=== PATIENT | female | born 1935 | race Caucasian/White ===

== ENCOUNTER 2017-12-20 12:51 | Emergency (ER) | payer OTHER ==
[2017-12-20 14:08] LABS: Urine Blood NEGATIVE (NEG); Urine Glucose NEGATIVE (NEG); Urine Protein NEGATIVE (NEG)
--- NOTE | 2017-12-20 15:41 | RAD REPORT ---
EXAM DESCRIPTION: RAD - Chest Pa And Lat (2 Views) - 12/20/2017 3:03 pm CLINICAL HISTORY: Dyspnea, COPD history COMPARISON: November 29 portable chest, November 24 CT chest TECHNIQUE: PA and lateral views of the chest were obtained. FINDINGS: The lungs are fibrotic as a baseline. Lung markings are more prominent in the medial poste rior right lung base. The prior CT chest study showed pneumonia change. Current findings likely repre sent residual infiltrate. No acute failure findings. Upper lobe vasculature within normal limits. C ardiac silhouette is enlarged but stable. No pleural effusion or pneumothorax seen. Osteopenic and d egenerative changes are present. 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 Aortic tortuosity is present without aneurysm. Hiatal hernia is noted. IMPRESSION: Baseline fibrotic change with remnant pneumonia in the medial right base.
[2017-12-20 15:58] LABS: Absolute Lymphocytes (CBC) 0.7 K/uL (0.7-4.9); Absolute Monocytes 0.8 K/uL (0.1-1.3); Absolute Neutrophil 4.9 K/uL (1.8-8.0); Basophils % 0.8 % (0-1.3); Eosinophils % 7.7 % (0-4.4); Hematocrit 31.3 % (36.0-45.0); Lymphocytes % 10.3 % (15.3-44.8); MCH 30.8 pg (27.0-35.0); MCV 93.8 fL (80-100); MPV 8.3 fL (7.6-11.3); Monocytes % 11.5 % (3.3-12.3); RBC Red Blood Cell Count 3.34 M/uL (3.86-4.86)
[2017-12-20] MEDS ORDERED: METHYLPREDNISOLONE 125 MG INJ ONE (16:05)
[2017-12-20] MEDS ORDERED: IPRATROPIUM BROM 0.5MG/2.5ML ONE (16:05)
[2017-12-20] MEDS ORDERED: ALBUTEROL 2.5 MG/3 ML NEB SOL ONE (16:05)
[2017-12-20 16:09] LABS: Protime INR 1.89
[2017-12-20 16:10] LABS: Potassium 4.2 mEq/L (3.6-5.0)
[2017-12-20 16:16] LABS: Albumin 3.4 g/dL (3.2-5.5); Bilirubin Direct 0.2 mg/dL (0-0.2); Bilirubin Total 0.8 mg/dL (0.3-1.2); Magnesium 1.5 mg/dL (1.8-2.5); Protein, Total 6.8 g/dL (6.0-8.3)
--- NOTE | 2017-12-20 16:47 | EKG ---
Test Date: 2017-12-20 Test Time: 15:20:36 [place] Attorney: DIANE MEASUREMENT RESULTS: Intervals: Rate: 74 [place]: QRSD: 88 QT: 380 QTc: 421 [place]: P: OK: QRS: -6 T: 52 INTERPRETIVE STATEMENTS: Atrial fibrillation Abnormal ECG Compared to ECG 11/23/2017 08:24:02 no significant change from previous ECG Electronically Signed On 12-20-17 16:46:57 CDT by Cristi Sanchez
[2017-12-20] MEDS ORDERED: AZITHROMYCIN 250 MG TAB ONE (16:58)
[2017-12-20] MEDS ORDERED: CEFTRIAXONE/SWI 1gm 1 GM/10 ML SYR ONE (16:59)
[2017-12-20 17:23] LABS: Arterial Blood Carboxyhemoglob 1.6 % (0-1.5); Blood Gas Oxyhemoglobin 86.4 % (94-97); Blood O2 Saturation 88.3 % (92-98.5)
--- NOTE | 2017-12-20 18:02 | ER ---
Nurse's Notes [facility] Name: Emi Miller Age: 82 yrs Sex: Female : 1935 Arrival Date: 12/20/2017 Time: 13:08 Bed 6 Private MD: Diagnosis: Pneumonia, unspecified organism;Chronic obstructive pulmonary disease with (acute) exacerbation;Weakness Presentation: 12/20 13:09 Presenting complaint: Patient states: i was admitted for COPD for a week here and was hj D/C'd at [facility] for 2 weeks, since then after desir was took out maulik been peeing frequently, now i am going back to [place], i just want ot be checked before i go home; denies fever and chills;. Transition of care: patient was not received from another setting of care. Onset of symptoms was December 20, 2017. Care prior to arrival: None. 13:09 Method Of Arrival: Ambulatory hj 13:09 Acuity: DERICK 3 hj Triage Assessment: 13:16 General: Appears in no apparent distress. uncomfortable, Behavior is calm, cooperative, hj appropriate for age. Pain: Denies pain. Historical: - Allergies: 13:15 No Known Allergies; hj - Home Meds: 13:15 acetaminophen-codeine 300-30 mg Oral tab 1 tab twice a day [Active]; allopurinol 100 mg hj Oral tab 1 tab once daily [Active]; furosemide 40 mg Oral tab 1 tab once daily [Active]; gabapentin 300 mg Oral cap 1 cap twice a day [Active]; Jantoven Oral [Active]; Metformin Oral nightly [Active]; metoprolol tartrate 25 mg Oral tab 1 tab 2 times per day [Active]; omeprazole 20 mg Oral cpDR 1 cap 2 times per day [Active]; potassium chloride 10 mEq Oral TbER 1 tab once daily [Active]; ProAir HFA inhalation [Active]; sertraline Oral 1 tab nightly [Active]; spironolactone 25 mg Oral tab 1 tab 2 times per day [Active]; Vitamin D Oral 2000 unit daily [Active]; Wellbutrin 100 mg Oral tab 1 tab daily [Active]; Zocor 80 mg Oral tab nightly [Active]; Eliquis 5 mg oral tab 1 tab 2 times per day [Active]; - PMHx: 13:15 Atrial Fib; CHF; COPD; Diabetes - NIDDM; Hypertension; hj - Immunization history:: Adult Immunizations up to date. - Social history:: Smoking status: Patient/guardian denies using tobacco. Screenin:00 Abuse screen: Denies threats or abuse. Denies injuries from another. Nutritional ch screening: No deficits noted. Tuberculosis screening: No symptoms or risk factors identified. Fall Risk None identified. Assessment: 13:56 General: Appears in no apparent distress. comfortable, Behavior is calm, cooperative, ch appropriate for age. Pain: Denies pain. Neuro: Level of Consciousness is awake, alert, obeys commands, Oriented to person, place, time, situation, Replenisher are. Cardiovascular: Denies chest pain. 14:07 Respiratory: Airway is patent Respiratory effort is even, unlabored, Breath sounds are ch diminished bilaterally. Breath sounds with wheezes bilaterally. pt states this is her normal, she has COPD. states she uses oxygen at night only, her standard o2 is 87-92%. GI: No signs and/or symptoms were reported involving the gastrointestinal system. : Reports urinary frequency. Derm: Skin is pale. 16:56 Reassessment: Patient appears in no apparent distress at this time. Patient and/or ch family updated on plan of care and expected duration. Pain level reassessed. Patient is alert, oriented x 3, equal unlabored respirations, skin warm/dry/pink. Patient states feeling better. Patient states symptoms have improved. 18:00 Reassessment: Patient appears in no apparent distress at this time. Patient and/or ch family updated on plan of care and expected duration. Pain level reassessed. Patient is alert, oriented x 3, equal unlabored respirations, skin warm/dry/pink. Patient states feeling better. Patient states symptoms have improved. 18:45 Reassessment: PT RIDE IS HERE, PT DISCHARGED HOMW. Vital Signs: 13:16 BP 110 / 54; Pulse 74; Resp 20; Temp 98.7(TE); Pulse Ox 93% on R/A; Weight 92.99 kg; hj Height 5 ft. 8 in. (172.72 cm); Pain 0/10; 14:00 BP 137 / 100; Pulse 64; Resp 15; Temp 98.3; Pulse Ox 92% on R/A; Pain 0/10; ch 14:57 BP 132 / 67; Pulse 72; Resp 22; Pulse Ox 89% on R/A; Pain 0/10; ch 16:56 BP 142 / 87; Pulse 78; Resp 24; Temp 98.9; Pulse Ox 92% on R/A; Pain 0/10; ch 18:21 BP 111 / 50; Pulse 83; Resp 19; Pulse Ox 90% on R/A; ag 13:16 Body Mass Index 31.17 (92.99 kg, 172.72 cm) ED Course: 13:08 Patient arrived in ED. hj 13:13 Triage completed. hj 13:16 Arm band placed on right wrist. hj 13:56 Ely Catalan, RN is Primary Nurse. ch 14:00 No apparent distress. Resting quietly. ch 14:00 Patient has correct armband on for positive identification. Bed in low position. Call light in reach. Side rails up X 1. Adult w/ patient. Pulse ox on. NIBP on. Warm blanket given. 14:00 No provider procedures requiring assistance completed. Urine collected: clean catch specimen, clear. 14:24 Heike Duke NP is PHCP. rh1 14:24 Chad García MD is Attending Physician. rh1 15:29 EKG done, by set up technician. reviewed by Heike Duke FIRE AND EXPLOSION INVESTIGATOR. tc 15:59 Basic Metabolic Panel Sent. ag 15:59 BNP Sent. ag 15:59 CBC with Diff Sent. ag 16:00 LFT's Sent. ag 16:00 Magnesium Sent. ag 16:00 PT-INR Sent. ag 16:00 Ptt, Activated Sent. ag 16:00 Troponin (emerg Dept Use Only) Sent. ag 16:00 Initial lab(s) drawn, by ks, sent to lab. Inserted saline lock: 22 gauge in right ag forearm, using aseptic technique. Blood collected. 18:21 Chest Pa And Lat (2 Views) XRAY Sent. ag 19:15 IV discontinued, intact, bleeding controlled, No redness/swelling at site. Pressure dressing applied. Administered Medications: 15:20 Drug: SOLU-Medrol 125 mg Route: IVP; Site: right antecubital; ch 17:34 Follow up: Response: No adverse reaction ch 15:56 Drug: Albuterol - atroVENT (3:1) (2.5 mg - 0.5 mg) 3 ml Route: Nebulizer; ch 17:33 Follow up: Response: No adverse reaction; Marked relief of symptoms 16:58 Drug: AZITHromycin 500 mg Route: PO; 17:34 Follow up: Response: No adverse reaction 16:59 Drug: Rocephin - (cefTRIAXone) 1 grams Route: IVPB; Infused Over: 30 mins; Site: right ch forearm; Outcome: 18:02 Discharge ordered by . rh1 18:35 Discharged to home via wheelchair, with family. 18:35 Condition: improved 18:35 Discharge instructions given to patient, family, Instructed on discharge instructions, follow up and referral plans. no drinking with medication, medication usage, Demonstrated understanding of instructions, follow-up care, medications, Prescriptions given X 3. 18:46 Patient left the ED. Signatures: Ely Catalan RN RN Melissa Michael, business reporter EKG Ttc Philly Lyle Rachel, NP FIRE AND EXPLOSION INVESTIGATOR 1 García Carnes RN RN Corrections: (The following items were deleted from the chart) 13:18 13:16 Pulse 74bpm; Resp 20bpm; Pulse Ox 92% RA; Temp 98.7F Temporal; 92.99 kg; Height 5 hj ft. 8 in.; BMI: 31.1; Pain 0/10; hj 13:19 13:16 Pulse 74bpm; Resp 20bpm; Pulse Ox 93% RA; Temp 98.7F Temporal; 92.99 kg; Height 5 hj ft. 8 in.; BMI: 31.1; Pain 0/10; hj 14:08 14:00 BP 137 / 100; Pulse 64bpm; Resp 15bpm; Pulse Ox 99% RA; Temp 98.3F; Pain 0/10; [facility]
--- NOTE | 2017-12-20 18:03 | EDPHYS ---
Physician Documentation [facility] Name: Emi Miller Age: 82 yrs Sex: Female : 1935 Arrival Date: 12/20/2017 Time: 13:08 Bed 6 Private MD: ED Physician Chad García HPI: 12/20 14:27 This 82 yrs old Female presents to ER via Ambulatory with complaints of rh1 Weakness, Urinary Problem. 14:27 generalized weakness, urinary incontinence. Onset: The symptoms/episode began/occurred rh1 1 month(s) ago. Severity of symptoms: At their worst the symptoms were moderate in the emergency department the symptoms have improved. The patient has not experienced similar symptoms in the past. The patient has been recently been admitted at [facility], was discharged a couple of weeks ago. Pt. was last seen approx. 1 month ago, here for dyspnea, COPD. Was admitted to [facility] for approx. 1 week, discharged to LT where she stayed for 2 weeks, and was discharged home approx. 1 week ago. Over the past week, she continues with generalized weakness and "not feeling myself," as well as LIANG and urinary incontinence. She reports some improvement in fatigue and increased energy for the past several days. She was unable to make it to her follow up appointment earlier this week with the discharging physician from the [facility], and is here today essentially "to get checked out, to see if I can fly back home.". Historical: - Allergies: 13:15 No Known Allergies; hj - Home Meds: 13:15 acetaminophen-codeine 300-30 mg Oral tab 1 tab twice a day [Active]; allopurinol 100 mg hj Oral tab 1 tab once daily [Active]; furosemide 40 mg Oral tab 1 tab once daily [Active]; gabapentin 300 mg Oral cap 1 cap twice a day [Active]; Jantoven Oral [Active]; Metformin Oral nightly [Active]; metoprolol tartrate 25 mg Oral tab 1 tab 2 times per day [Active]; omeprazole 20 mg Oral cpDR 1 cap 2 times per day [Active]; potassium chloride 10 mEq Oral TbER 1 tab once daily [Active]; ProAir HFA inhalation [Active]; sertraline Oral 1 tab nightly [Active]; spironolactone 25 mg Oral tab 1 tab 2 times per day [Active]; Vitamin D Oral 2000 unit daily [Active]; Wellbutrin 100 mg Oral tab 1 tab daily [Active]; Zocor 80 mg Oral tab nightly [Active]; Eliquis 5 mg oral tab 1 tab 2 times per day [Active]; - PMHx: 13:15 Atrial Fib; CHF; COPD; Diabetes - NIDDM; Hypertension; hj - Immunization history:: Adult Immunizations up to date. - Social history:: Smoking status: Patient/guardian denies using tobacco. ROS: 14:27 Constitutional: Negative for fever, chills rh1 14:27 Cardiovascular: Positive for orthopnea, Negative for chest pain, edema, palpitations. 14:27 Respiratory: Positive for cough, with no reported sputum, dyspnea on exertion, shortness of breath, wheezing, Negative for hemoptysis. 14:27 Abdomen/GI: Negative for abdominal pain, nausea, vomiting, and diarrhea, constipation. 14:27 Back: Negative for decreased range of motion, pain at rest, pain with movement, radiated pain. 14:27 : Positive for urinary frequency, bladder incontinence She reports the urinary incontinence began after desir catheter removed., Negative for small amounts, hematuria, burning with urination. 14:27 MS/extremity: Negative for decreased range of motion, pain, swelling. 14:27 Skin: Negative for diaphoresis, rash. 14:27 Neuro: Positive for weakness, generalized, Negative for altered mental status, dizziness, headache, loss of consciousness, numbness, syncope, near syncope, tingling. 14:27 All other systems are negative. Exam: 14:27 Constitutional: This is a well developed, well nourished patient who is awake, alert, rh1 and in no acute distress. Head/Face: Normocephalic, atraumatic. ENT: Nares patent. No nasal discharge, no septal abnormalities noted. Tympanic membranes are normal and external auditory canals are clear. Oropharynx with no redness, swelling, or masses, exudates, or evidence of obstruction, uvula midline. Mucous membranes moist. Neck: Trachea midline, and no cervical lymphadenopathy. Supple, full range of motion without nuchal rigidity. No Meningismus. Chest/axilla: Normal chest wall appearance and motion. Nontender with no deformity. No lesions are appreciated. Cardiovascular: Regular rate and rhythm with a normal S1 and S2. No gallops, murmurs, or rubs. No JVD. No pulse deficits. 14:27 Abdomen/GI: Soft, non-tender, with normal bowel sounds. No distension. No guarding or rebound. No evidence of tenderness throughout. Back: No spinal tenderness. No costovertebral tenderness. Full range of motion. Skin: Warm, dry with normal turgor. Normal color with no rashes, no lesions, and no evidence of cellulitis. MS/ Extremity: Pulses equal, no cyanosis. Neurovascular intact. Full, normal range of motion. 14:27 Cardiovascular: Edema: is not appreciated. 14:27 Respiratory: the patient does not display signs of respiratory distress, Respirations: normal, symetrical, no use of accessory muscles, no appreciated paradoxical movements, no tachypnea, prolonged exhalation, that is mild, pursed lip breathing, that is mild, Breath sounds: decreased breath sounds, that are moderate, are located in both bases, wheezing: expiratory that is mild, is scattered. 14:27 Neuro: Orientation: is normal, to person, place \\T\\ time. Mentation: is normal, lucid, able to follow commands, Motor: is normal, moves all fours, Sensation: is normal, no obvious gross deficits. Vital Signs: 13:16 BP 110 / 54; Pulse 74; Resp 20; Temp 98.7(TE); Pulse Ox 93% on R/A; Weight 92.99 kg; hj Height 5 ft. 8 in. (172.72 cm); Pain 0/10; 14:00 BP 137 / 100; Pulse 64; Resp 15; Temp 98.3; Pulse Ox 92% on R/A; Pain 0/10; ch 14:57 BP 132 / 67; Pulse 72; Resp 22; Pulse Ox 89% on R/A; Pain 0/10; ch 16:56 BP 142 / 87; Pulse 78; Resp 24; Temp 98.9; Pulse Ox 92% on R/A; Pain 0/10; ch 18:21 BP 111 / 50; Pulse 83; Resp 19; Pulse Ox 90% on R/A; ag 13:16 Body Mass Index 31.17 (92.99 kg, 172.72 cm) MDM: 14:27 Patient medically screened. rh1 18:02 ED course: Hospital ER and admission records reviewed. Discussed with pt. finding of rh1 right lower lobe pneumonia on CXR today not worse than when seen in hospital, dyspnea improved with nebs here. Given continued dyspnea and unresolved pneumonia, will treat with abx here. She currently uses home O2 while sleeping at night. There were discussions during her hospital admission of potential for need of home O2 23/04. We discussed if she continues with LIANG and persistent low O2 sats, she may require continuous O2. She is resistant to that idea, "because I don't think I need it." She is addiment today about not wanting to stay in the hospital, and given her O2 availability at home, her compliance with medications, familiarity with use of nebulizers, awareness of chronic symptoms, and her overall improvement over the past week, coupled with her workup findings today, I will discharge her with recommendation for immediate return if symptoms worsen. She and her granddaughter are in agreement with this plan. Discussed that once she feels well enough, and is able to coordinate with family, to follow up with primary physician in [place] regarding pneumonia, continued O2 therapy, and urinary incontinence. Also given list of family practice physicians in this area if her stay is prolonged so that she can make contact for follow up.. 18:02 Data reviewed: vital signs, nurses notes, old medical records, lab test result(s), EKG, rh1 radiologic studies, plain films, and as a result, I will discharge patient. Data interpreted: Pulse oximetry: on room air is 90 %. Interpretation: acceptable. Counseling: I had a detailed discussion with the patient and/or guardian regarding: the historical points, exam findings, and any diagnostic results supporting the discharge/admit diagnosis, lab results, radiology results, the need for outpatient follow up, a family practitioner, a therapy site coordinator, a urologist, to return to the emergency department if symptoms worsen or persist or if there are any questions or concerns that arise at home. 12/20 13:56 Order name: Urine Dipstick--Ancillary (enter results) ms 12/20 14:09 Order name: Urine Dipstick-Ancillary; Complete Time: 14:17 EDMS 12/20 14:46 Order name: Basic Metabolic Panel rh1 12/20 14:46 Order name: BNP rh1 12/20 14:46 Order name: CBC with Diff 1 12/20 14:46 Order name: LFT's 12/20 14:46 Order name: Magnesium [facility] 12/20 14:46 Order name: PT-INR 12/20 14:46 Order name: Ptt, Activated 12/20 14:46 Order name: Troponin (emerg Dept Use Only) 12/20 14:51 Order name: ABG [facility] 12/20 16:00 Order name: CBC with Automated Diff; Complete Time: 16:00 EDMS 12/20 16:10 Order name: Basic Metabolic Panel; Complete Time: 16:27 EDMS 12/20 16:10 Order name: Protime (+INR); Complete Time: 16:27 EDMS 12/20 14:46 Order name: EKG; Complete Time: 14:47 12/20 14:46 Order name: Cardiac monitoring; Complete Time: 17:34 [facility] 12/20 14:46 Order name: EKG - Nurse/Tech; Complete Time: 17:34 [facility] 12/20 14:46 Order name: IV Saline Lock; Complete Time: 15:59 [facility] 12/20 14:47 Order name: Chest Pa And Lat (2 Views) XRAY 12/20 15:42 Order name: RAD; Complete Time: 15:46 EDMS 12/20 16:10 Order name: PTT, Activated Partial Thromb; Complete Time: 16:27 EDMS 12/20 16:17 Order name: Troponin (Emerg Dept Use Only); Complete Time: 16:27 EDMS 12/20 16:20 Order name: Liver (Hepatic) Function; Complete Time: 16:27 EDMS 12/20 16:20 Order name: Magnesium; Complete Time: 16:27 EDMS 12/20 16:21 Order name: BNP B-Type Natriuretic Peptide; Complete Time: 16:27 EDMS 12/20 18:14 Order name: ABG Arterial Blood Gas; Complete Time: 18:29 EDMS 12/20 14:46 Order name: Labs collected and sent; Complete Time: 15:59 [facility] 12/20 14:47 Order name: O2 Per Protocol; Complete Time: 15:59 [facility] 12/20 14:47 Order name: O2 Sat Monitoring; Complete Time: 15:59 [facility] 12/20 14:47 Order name: Urine Dipstick-Ancillary (obtain specimen); Complete Time: 18:12 [facility] Administered Medications: 15:20 Drug: SOLU-Medrol 125 mg Route: IVP; Site: right antecubital; ch 17:34 Follow up: Response: No adverse reaction ch 15:56 Drug: Albuterol - atroVENT (3:1) (2.5 mg - 0.5 mg) 3 ml Route: Nebulizer; ch 17:33 Follow up: Response: No adverse reaction; Marked relief of symptoms ch 16:58 Drug: AZITHromycin 500 mg Route: PO; ch 17:34 Follow up: Response: No adverse reaction ch 16:59 Drug: Rocephin - (cefTRIAXone) 1 grams Route: IVPB; Infused Over: 30 mins; Site: right ch forearm; Disposition: 12/21 14:52 Co-signature as Attending Physician, Chad García MD I agree with the assessment and stephanie plan of care. Disposition: 12/20/17 18:02 Discharged to Home. Impression: Pneumonia, unspecified organism, Chronic obstructive pulmonary disease with (acute) exacerbation, Weakness. - Condition is Stable. - Discharge Instructions: Chronic Obstructive Pulmonary Disease, Weakness, Fatigue, Pneumonia, Adult, [id number]. - Prescriptions for cefdinir 300 mg Oral capsule - take 1 capsule by ORAL route every 12 hours for 10 days; [address]. [address] Z- Lane 250 mg Oral Tablet - take 1 tablet by ORAL route as directed for 5 days Day 1 - take two (2) tablets one time. Day 2, 3, 4 , 5 take one (1) tablet once daily.; 6 tablet. Albuterol Sulfate 2.5 mg /3 mL (0.083 %) Inhalation Solution for Nebulization - inhale 1 unit by NEBULIZATION route every 8 hours As needed; 1 box. - SBAR form, Medication Reconciliation Form, Thank You Letter, Antibiotic Education, Prescription Opioid Use form. - Follow up: Private Physician; When: 1 - 2 days; Reason: Recheck today's complaints, Continuance of care, Re-evaluation by your physician. Follow up: Emergency Department; When: As needed; Reason: Fever > 102 F, If symptoms return, Trouble breathing, Worsening of condition. - Problem is an ongoing problem. - Symptoms have improved. Signatures: Dispatcher [employer] EDEly Álvarez RN RN ch Anderson, Corey, MD MD cha Jones, Rachel, FLOUR WORKER FLOUR WORKER rh1 García Carnes RN RN hj Corrections: (The following items were deleted from the chart) 11:12/20 18:02 ED course: Hospital ER and admission records reviewed. Discussed with pt. rh1 finding of right lower lobe pneumonia on CXR today not worse than when seen in hospital. Given continued dyspnea and unresolved pneumonia, will treat with abx here. She currently uses home O2 while sleeping at night. There were discussions during her hospital admission of potential for need of home O2 24/7. We discussed if she continues with LIANG and persistent low O2 sats, she may require continuous O2. She is resistant to that idea, "because I don't think I need it." . 1 12/21 11:12/20 14:27 Pt. was last seen approx. 1 month ago, here for dyspnea, COPD. Was admitted rh to [facility] for approx. 1 week, discharged to [facility] where she stayed for 2 weeks, and was discharged home approx. 1 week ago. Over the past week, she continues with generalized weakness and "not feeling myself," as well as LIANG and urinary incontinence.. 1 12/21 11:12/20 14:27 : Positive for urinary frequency, bladder incontinence Negative for small rh1 amounts, hematuria, burning with urination, 1 12/21 11:12/20 18:02 ED course: Hospital ER and admission records reviewed. Discussed with pt. rh1 finding of right lower lobe pneumonia on CXR today not worse than when seen in hospital, dyspnea improved with nebs here. Given continued dyspnea and unresolved pneumonia, will treat with abx here. She currently uses home O2 while sleeping at night. There were discussions during her hospital admission of potential for need of home O2 24/7. We discussed if she continues with LIANG and persistent low O2 sats, she may require continuous O2. She is resistant to that idea, "because I don't think I need it." She is addiment today about not wanting to stay in the hospital, and given her O2 availability at home, her compliance with medications, familiarity with use of nebulizers, awareness of chronic symptoms, and her overall improvement over the past week, coupled with her workup findings today, I will discharge her with recommendation for immediate return if symptoms worsen. She and her granddaughter are in agreement with this plan.. rh1
== END 2017-12-20 18:46 | disposition home or self-care (01) ==
LOC: ER 12:51
DX: J18.9 Pneumonia, unspecified organism; E11.9 Type 2 diabetes mellitus without complications; J44.1 Chronic obstructive pulmonary disease with (acute) exacerbation; I10 Essential (primary) hypertension
CPT/HCPCS: 36415; 71046; 80048; 80076; 81003; 82805; 82962; 83735; 83880; 84484; 85025; 85610; 85730; 93005; 94640; 99285; J0696; J2930

== ENCOUNTER 2019-11-14 11:33 | Observation (INO) | payer OTHER ==
[2019-11-14] MEDS ORDERED: FUROSEMIDE 20 MG/ 2ML VIAL ONE ×2 (12:15→13:23)
[2019-11-14 12:32] LABS: Absolute Lymphocytes (CBC) 0.8 K/uL (0.7-4.9); Basophils % 0.3 % (0-1.3); Hematocrit 28.1 % (36.0-45.0); Lymphocytes % 12.6 % (15.3-44.8); MPV 9.7 fL (7.6-11.3); RBC Red Blood Cell Count 3.01 M/uL (3.86-4.86)
[2019-11-14 12:46] LABS: ALT/SGPT 24 U/L (12-78); AST/SGOT 28 U/L (15-37); Albumin 3.5 g/dL (3.4-5.0); Alkaline Phosphatase 120 U/L (45-117); BUN Blood Urea Nitrogen 32 mg/dL (7-18); Bicarbonate 33 mmol/L (21-32); Bilirubin Direct 0.1 mg/dL (0-0.2); Bilirubin Total 0.4 mg/dL (0.2-1.0); Glucose Level 93 mg/dL (74-106); Lipase 159 U/L (73-393); Magnesium 2.2 mg/dL (1.8-2.4); NT PRO-BNP 283 pg/mL (<450); Potassium 4.1 mmol/L (3.5-5.1); Sodium Level 143 mmol/L (136-145); Troponin (Emerg Dept Use Only) < 0.02 ng/mL (0.0-0.045)
--- NOTE | 2019-11-14 12:51 | RAD REPORT ---
EXAM DESCRIPTION: Chelsey Single View11/14/2019 12:41 pm CLINICAL HISTORY: Chest pain COMPARISON: 2018 FINDINGS: The lungs appear clear of acute infiltrate. The heart is moderately enlarged . Upper lobe vessels are prominent indicative of pulmonary venous hypertension
[2019-11-14 12:52] LABS: Protime INR 1.35
[2019-11-14] MEDS ORDERED: PANTOPRAZOLE 40 MG INJ ONE (13:23)
[2019-11-14 13:26] LABS: Urine Blood NEGATIVE (NEG); Urine Glucose NEGATIVE (NEG); Urine Protein 1+ (NEG)
--- NOTE | 2019-11-14 13:32 | EKG ---
Test Date: 2019-11-14 Test Time: 12:49:58 Cash Management Specialist: JAZMYNE MEASUREMENT RESULTS: Intervals: Rate: 64 MT: QRSD: 104 QT: 434 QTc: 447 [place]: P: MT: QRS: -26 T: 57 INTERPRETIVE STATEMENTS: Atrial fibrillation Abnormal ECG Compared to ECG 12/20/2017 15:20:36 No significant changes Electronically Signed On 11-14-19 13:32:16 [place] by Cristi Sanchez
--- NOTE | 2019-11-14 15:30 | ECHO ---
HEIGHT: 5 ft 7 in WEIGHT: 206 lb oz DATE OF STUDY: 11/14/[address]: Chad García MD 2-DIMENSIONAL: YES M.MODE: YES DOPPLER: YES COLOR FLOW: YES TDS: NO PORTABLE: NO DEFINITY: NO BUBBLE STUDY: NO DIAGNOSIS: CHEST PAIN/ CONGESTIVE HEART FAILURE CARDIAC HISTORY: CATHERIZATION: YES SURGERY: NO PROSTHETIC VALVE: NO PACEMAKER: NO MEASUREMENTS (cm) DIASTOLIC (NORMALS) SYSTOLIC (NORMALS) IVSd 1.1 (0.6-1.2) LA Diam 5.3 (1.9-4.0) LVEF 73% LVIDd 4.7 (3.5-5.7) LVIDs 2.7 (2.0-3.5) %FS 42% LVPWd 1.1 (0.6-1.2) Ao Diam 3.2 (2.0-3.7) 2 DIMENSIONAL ASSESSMENT: RIGHT ATRIUM: DILATED LEFT ATRIUM: NORMAL RIGHT VENTRICLE: NORMAL LEFT VENTRICLE: NORMAL TRICUSPID VALVE: NORMAL MITRAL VALVE: MITRAL ANNULAR CALCIFICATION PULMONIC VALVE: NORMAL AORTIC VALVE: SCLEROSIS PERICARDIAL EFFUSION: NONE AORTIC ROOT: NORMAL LEFT VENTRICULAR WALL MOTION: NORMAL. 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 MILD TRICUSPID REGURGITATION. MODERATE PULMONARY HYPERTENSION, ESTIMATED RIGHT VENTRICULAR SYSTOLIC PRESSURE 55mmHg. COMMENTS: NORMAL LEFT VENTRICULAR EJECTION FRACTION. MITRAL ANNULAR CALCIFICATION, AORTIC SCLEROSIS WITH NO AORTIC STENOSIS OR AORTIC REGURGITATION. DILATED RIGHT ATRIUM. 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 MILD TRICUSPID REGURGITATION. MODERATE PULMONARY HYPERTENSION. TECHNOLOGIST: JEANNETTE ELLSWORTH
--- NOTE | 2019-11-14 15:52 | ER ---
Nurse's Notes [facility] Name: Emi Miller Age: 84 yrs Sex: Female : 1935 Arrival Date: 11/14/2019 Time: 11:36 Bed 8 Private MD: Diagnosis: Chest pain, unspecified;Dyspnea;Anemia, unspecified;Obesity, unspecified;Atrial fibrillation and flutter;Type 2 diabetes mellitus;Primary pulmonary hypertension Presentation: 11/14 11:44 Presenting complaint: Patient states: Cough and chest congestion that started several sg days ago, reports needing o2 via NC while laying in bed, and also needing the o2 while out running errands, denies N/V/D/F. Transition of care: patient was not received from another setting of care. Resp Distress? No respiratory distress is noted at this time. Onset of symptoms was November 14, 2019. Risk Assessment: Do you want to hurt yourself or someone else? Patient reports no desire to harm self or others. Initial Sepsis Screen: Does the patient meet any 2 criteria? RR > 20 per min. Does the patient have a suspected source of infection? No. Patient's initial sepsis screen is negative. Care prior to arrival: None. 11:44 Method Of Arrival: Wheelchair sg 11:44 Acuity: DERICK 3 sg Historical: - Allergies: 11:46 No Known Allergies; sg - PMHx: 11:46 Atrial Fib; CHF; COPD; Diabetes - NIDDM; Hypertension; sg - Immunization history:: Adult Immunizations up to date. - Coronavirus screen:: The patient has NOT traveled to [place] in the past 14 days. The patient has NOT had contact with known/suspected case of Coronavirus?. - Social history:: Smoking status: Patient denies any tobacco usage or history of. - Family history:: not pertinent. - Ebola Screening: : Patient negative for fever greater than or equal to 101.5 degrees Fahrenheit, and additional compatible Ebola Virus Disease symptoms Patient denies exposure to infectious person Patient denies travel to an Ebola-affected area in the 21 days before illness onset No symptoms or risks identified at this time. Screenin:05 Abuse screen: Denies threats or abuse. Nutritional screening: No deficits noted. em Tuberculosis screening: No symptoms or risk factors identified. Fall Risk None identified. Assessment: 12:00 General: Appears in no apparent distress. comfortable, Behavior is calm, cooperative, em appropriate for age, Denies fever. Pain: Complains of pain in xyphoid area Pain currently is 6 out of 10 on a pain scale. Pain began 2-3 days ago. Neuro: Level of Consciousness is awake, alert, obeys commands, Oriented to person, place, time, situation, Appropriate for age. Cardiovascular: Capillary refill < 3 seconds Patient's skin is warm and dry. Rhythm is sinus rhythm. Respiratory: Reports shortness of breath Airway is patent Respiratory effort is even, Respiratory pattern is regular, tachypnea Breath sounds are diminished bilaterally. Denies cough. GI: Patient currently denies nausea, vomiting. Derm: Skin is intact, is thin, Skin is pink, warm \T\ dry. Musculoskeletal: Capillary refill < 3 seconds, Range of motion: intact in all extremities. 13:20 Reassessment: assisted to bedside commode, tolerated well, family at bedside. em 13:30 Reassessment: Patient appears in no apparent distress at this time. Patient and/or em family updated on plan of care and expected duration. Pain level reassessed. Patient is alert, oriented x 3, equal unlabored respirations, skin warm/dry/pink. 15:44 Reassessment: Patient appears in no apparent distress at this time. Patient and/or em family updated on plan of care and expected duration. Pain level reassessed. Patient is alert, oriented x 3, equal unlabored respirations, skin warm/dry/pink. Patient states feeling better. Patient states symptoms have improved. 15:55 Reassessment: lunch tray ordered. em 17:15 Reassessment: Patient appears in no apparent distress at this time. Patient and/or em family updated on plan of care and expected duration. Pain level reassessed. Patient is alert, oriented x 3, equal unlabored respirations, skin warm/dry/pink. Patient states feeling better. Patient states symptoms have improved. 18:20 Reassessment: Patient appears in no apparent distress at this time. Patient and/or em family updated on plan of care and expected duration. Pain level reassessed. pt assisted to bedside commode, given new brief, pt reports feeling better. 19:15 Reassessment: Patient appears in no apparent distress at this time. Pain: Complains of rr5 pain in head Pain does not radiate. Pain currently is 7 out of 10 on a pain scale. Quality of pain is described as aching, Pain began gradually, Is intermittent. Neuro: Level of Consciousness is awake, alert, obeys commands, Oriented to person, place, time, situation, Appropriate for age Reports headache. Cardiovascular: Capillary refill < 3 seconds Patient's skin is warm and dry. Respiratory: Airway is patent Respiratory effort is even, unlabored, Respiratory pattern is regular, tachypnea on oxygen via nasal cannula. GI: No signs and/or symptoms were reported involving the gastrointestinal system. : No signs and/or symptoms were reported regarding the genitourinary system. EENT: No signs and/or symptoms were reported regarding the EENT system. Derm: Skin is intact, is fragile, is thin, Skin is pink, warm \T\ dry. Musculoskeletal: Capillary refill < 3 seconds. 19:20 General: Appears in no apparent distress. comfortable, Behavior is calm, cooperative, rr5 appropriate for age, ED provider aware for the headache with order made and carried out. awaiting for room assignment. 20:00 Reassessment: Patient appears in no apparent distress at this time. Patient is alert, rr5 oriented x 3, equal unlabored respirations, skin warm/dry/pink. hold the transfer to room, D dimer elevated Charge nurse informed the hospitalist. 20:30 Reassessment: hospitalist replied to charge nurse, patient is cleared for transfer in rr5 floor. Vital Signs: 12:00 BP 136 / 69; Pulse 81; Resp 24; Temp 98.1(O); Pulse Ox 95% on 2 lpm NC; Weight 93.44 em kg; Height 5 ft. 7 in. (170.18 cm); Pain 6/10; 13:30 BP 132 / 68; Pulse 60; Resp 22; Pulse Ox 99% on 2 lpm NC; em 14:30 BP 115 / 58; Pulse 56; Resp 20; Pulse Ox 99% on 2 lpm NC; Pain 0/10; em 15:30 BP 132 / 64; Pulse 58; Resp 18; Pulse Ox 100% on 2 lpm NC; em 16:30 BP 116 / 53; Pulse 67; Resp 18; Pulse Ox 100% on 2 lpm NC; Pain 0/10; em 17:30 BP 120 / 52; Pulse 78; Resp 16; Pulse Ox 99% on 2 lpm NC; em 18:36 BP 114 / 58; Pulse 60; Resp 20; Pulse Ox 97% on 2 lpm NC; em 19:40 BP 126 / 53; Pulse 72; Resp 21; Temp 98.1; Pulse Ox 99% on 2 lpm NC; Pain 7/10; rr5 12:00 Body Mass Index 32.26 (93.44 kg, 170.18 cm) em ED Course: 11:36 Patient arrived in ED. rg4 11:39 Chad García MD is Attending Physician. stephanie 11:43 Andi Andersen, JENNIFER is Primary Nurse. em 11:45 Triage completed. sg 11:45 Arm band placed on. sg 11:46 Assisted to bathroom. sg 12:05 Patient has correct armband on for positive identification. Placed in gown. Bed in low em position. Call light in reach. library monitor on. Pulse ox on. NIBP on. 12:22 Initial lab(s) drawn, by me, sent to lab. Inserted saline lock: 20 gauge in right jl7 forearm, using aseptic technique. Blood collected. 13:05 Urine collected: clean catch specimen, clear. sg 13:44 T\T\S collected, blood band applied to patient. dh3 15:41 Repeat lab(s) drawn. by me, sent to lab. dh3 15:45 Troponin I Sent. dh3 15:50 Rasta Cyr DO is Hospitalizing Provider. stephanie 17:00 Marybeth Singh MD is Hospitalizing Provider. stephanie 19:03 D Dimer drawn by oh and sent to lab. dh3 19:48 No provider procedures requiring assistance completed. Patient admitted, IV remains in rr5 place. intact, No redness/swelling at site. Administered Medications: 12:32 Drug: Lasix 20 mg Route: IVP; Site: right wrist; em 15:18 Follow up: Response: No adverse reaction em 13:30 Drug: Lasix 20 mg Route: IVP; Site: right wrist; em 15:18 Follow up: Response: No adverse reaction em 13:32 Drug: ProTONIX 40 mg Route: IVP; Site: right wrist; em 15:34 Follow up: Response: No adverse reaction em 19:55 Drug: Tylenol 500 mg Route: PO; rr5 19:57 Follow up: Response: Other; medication given at transfer to room 412 rr5 Intake: Outcome: 15:51 Decision to Hospitalize by Provider. stephanie 19:48 Admitted to Tele accompanied by tech, room 412, with oxygen, with chart, Report called rr5 to alan 19:48 Condition: stable 19:48 Instructed on the need for admit. 20:31 Patient left the ED. rr5 Signatures: Efe Ward, RN Chad Ortiz MD MD cha Munoz, Edgar RN RN Karime Millan 4 Jose Lema RN RN 7 Sariah Jaffe 3 Memo Otero, JENNIFER RN rr5 Corrections: (The following items were deleted from the chart) 18:38 16:30 BP 116 / 53; Pulse 67bpm; Resp 18bpm; Pulse Ox 100% RA; Pain 0/10; em em 20:04 19:40 BP 126 / 53; Pulse 72bpm; Resp 21bpm; Pulse Ox 99% 2 lpm Nasal Cannula; Temp rr5 98.1F; rr5
--- NOTE | 2019-11-14 15:53 | EDPHYS ---
Physician Documentation [facility] Name: Emi Miller Age: 84 yrs Sex: Female : 1935 Arrival Date: 11/14/2019 Time: 11:36 Bed 8 Private MD: ED Physician Chad García HPI: 11/14 12:10 This 84 yrs old Female presents to ER via Wheelchair with complaints of stephanie Congestion. 12:10 The patient has shortness of breath at rest, with light activity. Onset: The stephanie symptoms/episode began/occurred 2 day(s) ago. Duration: The symptoms are continuous, and are steadily getting worse. The patient's shortness of breath is aggravated by coughing, exertion, light activity, supine position. The patient or guardian reports chest pain that is located primarily in the anterior chest wall, bilaterally. Onset: 2 day(s) ago. Associated signs and symptoms: The patient has no apparent associated signs or symptoms. Severity of symptoms: At their worst the symptoms were mild moderate in the emergency department the symptoms are unchanged. Historical: - Allergies: 11:46 No Known Allergies; sg - PMHx: 11:46 Atrial Fib; CHF; COPD; Diabetes - NIDDM; Hypertension; sg - Immunization history:: Adult Immunizations up to date. - Coronavirus screen:: The patient has NOT traveled to [place] in the past 14 days. The patient has NOT had contact with known/suspected case of Coronavirus?. - Social history:: Smoking status: Patient denies any tobacco usage or history of. - Family history:: not pertinent. - Ebola Screening: : Patient negative for fever greater than or equal to 101.5 degrees Fahrenheit, and additional compatible Ebola Virus Disease symptoms Patient denies exposure to infectious person Patient denies travel to an Ebola-affected area in the 21 days before illness onset No symptoms or risks identified at this time. ROS: 12:10 Constitutional: Negative for fever, chills, and weight loss, Eyes: Negative for injury, stephanie pain, redness, and discharge, ENT: Negative for injury, pain, and discharge, Neck: Negative for injury, pain, and swelling, Abdomen/GI: Negative for abdominal pain, nausea, vomiting, diarrhea, and constipation, Back: Negative for injury and pain, : Negative for injury, bleeding, discharge, and swelling, MS/Extremity: Negative for injury and deformity, Skin: Negative for injury, rash, and discoloration, Neuro: Negative for headache, weakness, numbness, tingling, and seizure, Psych: Negative for depression, anxiety, suicide ideation, homicidal ideation, and hallucinations, Allergy/Immunology: Negative for hives, rash, and allergies, Endocrine: Negative for neck swelling, polydipsia, polyuria, polyphagia, and marked weight changes, Hematologic/Lymphatic: Negative for swollen nodes, abnormal bleeding, and unusual bruising. 12:10 Cardiovascular: Positive for chest pain, orthopnea. 12:10 Respiratory: Positive for shortness of breath. Exam: 12:10 Constitutional: This is a well developed, well nourished patient who is awake, alert, stephanie and in no acute distress. Head/Face: Normocephalic, atraumatic. Eyes: Pupils equal round and reactive to light, extra-ocular motions intact. Lids and lashes normal. Conjunctiva and sclera are non-icteric and not injected. Cornea within normal limits. Periorbital areas with no swelling, redness, or edema. ENT: Nares patent. No nasal discharge, no septal abnormalities noted. Tympanic membranes are normal and external auditory canals are clear. Oropharynx with no redness, swelling, or masses, exudates, or evidence of obstruction, uvula midline. Mucous membranes moist. Chest/axilla: Normal chest wall appearance and motion. Nontender with no deformity. No lesions are appreciated. Cardiovascular: Regular rate and rhythm with a normal S1 and S2. No gallops, murmurs, or rubs. Normal PMI, no JVD. No pulse deficits. Respiratory: Lungs have equal breath sounds bilaterally, clear to auscultation and percussion. No rales, rhonchi or wheezes noted. No increased work of breathing, no retractions or nasal flaring. Abdomen/GI: Soft, non-tender, with normal bowel sounds. No distension or tympany. No guarding or rebound. No evidence of tenderness throughout. Back: No spinal tenderness. No costovertebral tenderness. Full range of motion. Female : Normal external genitalia. Skin: Warm, dry with normal turgor. Normal color with no rashes, no lesions, and no evidence of cellulitis. MS/ Extremity: Pulses equal, no cyanosis. Neurovascular intact. Full, normal range of motion. Neuro: Awake and alert, GCS 15, oriented to person, place, time, and situation. Cranial nerves II-XII grossly intact. Motor strength 5/5 in all extremities. Sensory grossly intact. Cerebellar exam normal. Normal gait. Psych: Awake, alert, with orientation to person, place and time. Behavior, mood, and affect are within normal limits. 12:10 Neck: External neck: no acute changes, Thyroid: appears normal, ROM/movement: is normal, no acute changes, Lymph nodes: no appreciated lymphadenopathy. 12:10 Cardiovascular: Rate: normal, Rhythm: regular, Pulses: no pulse deficits are appreciated, Heart sounds: normal, normal S1and S2, no S3 or S4, no murmur, no rub, no gallop, Edema: is not appreciated, JVD: is noted bilaterally, to 3 cm. 14:28 Abdomen/GI: Rectal exam: Stool: normal, guaiac negative, hemorrhoid(s), are not stephanie appreciated, mass, is not appreciated, swelling, is not appreciated, tenderness, is not appreciated. Vital Signs: 12:00 BP 136 / 69; Pulse 81; Resp 24; Temp 98.1(O); Pulse Ox 95% on 2 lpm NC; Weight 93.44 em kg; Height 5 ft. 7 in. (170.18 cm); Pain 6/10; 13:30 BP 132 / 68; Pulse 60; Resp 22; Pulse Ox 99% on 2 lpm NC; em 14:30 BP 115 / 58; Pulse 56; Resp 20; Pulse Ox 99% on 2 lpm NC; Pain 0/10; em 15:30 BP 132 / 64; Pulse 58; Resp 18; Pulse Ox 100% on 2 lpm NC; em 16:30 BP 116 / 53; Pulse 67; Resp 18; Pulse Ox 100% on 2 lpm NC; Pain 0/10; em 17:30 BP 120 / 52; Pulse 78; Resp 16; Pulse Ox 99% on 2 lpm NC; em 18:36 BP 114 / 58; Pulse 60; Resp 20; Pulse Ox 97% on 2 lpm NC; em 19:40 BP 126 / 53; Pulse 72; Resp 21; Temp 98.1; Pulse Ox 99% on 2 lpm NC; Pain 7/10; rr5 12:00 Body Mass Index 32.26 (93.44 kg, 170.18 cm) em MDM: 11:39 Patient medically screened. [facility] 12:17 Data reviewed: vital signs, nurses notes, lab test result(s), EKG, radiologic studies, [facility] plain films. 11/14 12:09 Order name: Basic Metabolic Panel [facility] 11/14 12:09 Order name: CBC with Diff [facility] 11/14 12:09 Order name: LFT's [facility] 11/14 12:09 Order name: Magnesium [facility] 11/14 12:09 Order name: NT PRO-BNP [facility] 11/14 12:09 Order name: PT-INR [facility] 11/14 12:09 Order name: Troponin (emerg Dept Use Only) [facility] 11/14 12:09 Order name: Lipase [facility] 11/14 12:09 Order name: Urine Culture [facility] 11/14 12:36 Order name: CBC with Automated Diff; Complete Time: 12:49 EDMS 11/14 12:48 Order name: Basic Metabolic Panel; Complete Time: 12:49 EDMS 11/14 12:48 Order name: Liver (Hepatic) Function; Complete Time: 12:49 EDMS 11/14 12:48 Order name: Troponin (Emerg Dept Use Only); Complete Time: 12:49 EDMS 11/14 12:48 Order name: NT PRO-BNP; Complete Time: 12:49 EDMS 11/14 12:09 Order name: XRAY Chest (1 view) [facility] 11/14 12:48 Order name: Magnesium; Complete Time: 12:49 EDMS 11/14 12:48 Order name: Lipase; Complete Time: 12:49 EDMS 11/14 12:50 Order name: Type And Screen [facility] 11/14 12:53 Order name: Protime (+INR); Complete Time: 13:06 EDMS 11/14 12:55 Order name: RAD; Complete Time: 13:06 EDMS 11/14 13:06 Order name: Urine Dipstick--Ancillary (enter results) 11/14 13:29 Order name: Urine Dipstick-Ancillary; Complete Time: 15:21 EDMS 11/14 15:08 Order name: Type and Screen; Complete Time: 15:21 EDMS 11/14 15:21 Order name: Troponin I [facility] 11/14 15:23 Order name: ABO/RH no charge; Complete Time: 16:14 EDMS 11/14 16:08 Order name: Troponin I; Complete Time: 16:14 [facility] 11/14 16:57 Order name: Troponin (emerg Dept Use Only) [facility] 11/14 18:57 Order name: Hemoglobin A1c [facility] 11/14 18:59 Order name: Thyroid Stimulating Hormone [facility] 11/14 19:52 Order name: D-Dimer [facility] 11/14 12:09 Order name: EKG; Complete Time: 12:10 [facility] 11/14 12:09 Order name: Cardiac monitoring; Complete Time: 14:02 [facility] 11/14 12:09 Order name: EKG - Nurse/Tech; Complete Time: 14:02 [facility] 11/14 12:09 Order name: IV Saline Lock; Complete Time: 12:23 [facility] 11/14 12:09 Order name: Labs collected and sent; Complete Time: 12:23 [facility] 11/14 12:09 Order name: O2 Per Protocol; Complete Time: 12:23 [facility] 11/14 12:09 Order name: O2 Sat Monitoring; Complete Time: 12:23 [facility] 11/14 12:09 Order name: Oxygen; Complete Time: 12:23 [facility] 11/14 12:09 Order name: Urine Dipstick-Ancillary (obtain specimen); Complete Time: 13:01 [facility] 11/14 13:16 Order name: Echo w/ Doppler [facility] 11/14 15:55 Order name: Diet Ada 1800 Kamaljit; Complete Time: 15:55 dh3 Administered Medications: 12:32 Drug: Lasix 20 mg Route: IVP; Site: right wrist; em 15:18 Follow up: Response: No adverse reaction em 13:30 Drug: Lasix 20 mg Route: IVP; Site: right wrist; em 15:18 Follow up: Response: No adverse reaction em 13:32 Drug: ProTONIX 40 mg Route: IVP; Site: right wrist; em 15:34 Follow up: Response: No adverse reaction em 19:55 Drug: Tylenol 500 mg Route: PO; rr5 19:57 Follow up: Response: Other; medication given at transfer to room 412 rr5 Disposition: 11/14/19 15:51 Hospitalization ordered by Marybeth Singh for Inpatient Admission. Preliminary diagnosis are Chest pain, unspecified, Dyspnea, Anemia, unspecified, Obesity, unspecified, Atrial fibrillation and flutter, Type 2 diabetes mellitus, Primary pulmonary hypertension. - Bed requested for Telemetry/MedSurg (Inpatient). - Status is Inpatient Admission. rr5 - Condition is Fair. - Problem is new. - Symptoms have improved. Signatures: Dispatcher [employer] EDMS Pinky Marshall RN RN mw Gay, Steven, RN RN sg Anderson, Corey, MD MD cha Munoz, Edgar RN Memo Andrews RN RN rr5 Corrections: (The following items were deleted from the chart) 17:00 15:51 Hospitalization Ordered by Rasta Cyr DO for Inpatient Admission. Preliminary stephanie diagnosis is Chest pain, unspecified; Dyspnea; Anemia, unspecified; Obesity, unspecified; Atrial fibrillation and flutter; Type 2 diabetes mellitus. Bed requested for Telemetry/MedSurg (Inpatient). Status is Inpatient Admission. Condition is Fair. Problem is new. Symptoms have improved. stephanie 17:01 17:00 11/14/2019 15:51 Hospitalization Ordered by Marybeth Singh MD for Inpatient Admission. stephanie Preliminary diagnosis is Chest pain, unspecified; Dyspnea; Anemia, unspecified; Obesity, unspecified; Atrial fibrillation and flutter; Type 2 diabetes mellitus. Bed requested for Telemetry/MedSurg (Inpatient). Status is Inpatient Admission. Condition is Fair. Problem is new. Symptoms have improved. stephanie 19:37 17:01 11/14/2019 15:51 Hospitalization Ordered by Marybeth Singh MD for Inpatient Admission. mw Preliminary diagnosis is Chest pain, unspecified; Dyspnea; Anemia, unspecified; Obesity, unspecified; Atrial fibrillation and flutter; Type 2 diabetes mellitus; Primary pulmonary hypertension. Bed requested for Telemetry/MedSurg (Inpatient). Status is Inpatient Admission. Condition is Fair. Problem is new. Symptoms have improved. stephanie 20:31 19:37 11/14/2019 15:51 Hospitalization Ordered by Marybeth Singh MD for Inpatient Admission. rr5 Preliminary diagnosis is Chest pain, unspecified; Dyspnea; Anemia, unspecified; Obesity, unspecified; Atrial fibrillation and flutter; Type 2 diabetes mellitus; Primary pulmonary hypertension. Bed requested for Telemetry/MedSurg (Inpatient). Status is Inpatient Admission. Condition is Fair. Problem is new. Symptoms have improved. mw
[2019-11-14] MEDS ORDERED: ALBUTEROL 2.5 MG/3 ML NEB SOL NEB PRN (17:44)
[2019-11-14] MEDS ORDERED: ONDANSETRON 4 MG/2 ML VIAL IV PRN (17:44)
[2019-11-14] MEDS ORDERED: ALPRAZOLAM 0.25 MG TABLET PO PRN (17:44)
[2019-11-14] MEDS ORDERED: ACETAMINOPHEN 500 MG TAB PO PRN (17:44)
--- NOTE | 2019-11-14 18:03 | P.HP ---
Certification for Inpatient Patient admitted to: Observation With expected LOS: <2 Midnights Patient will require the following post-hospital care: Home Health Services Practitioner: I am a practitioner with admitting privileges, knowledge of patient current condition, hospital course, and medical plan of care. Services: Services provided to patient in accordance with Admission requirements found in Title 42 Section 412.3 of the Code of Federal Regulations Patient History Date of Service: 11/14/19 Reason for admission: chest pain History of Present Illness: This patient is an 84 year-old female who presented for chest pain. She has a history of atrial fibrillation on Eliquis, coronary artery disease status post stenting, possible CHF, COPD, hypertension, type 2 diabetes, acid reflex, pulmonary hypertension. She is a home oxygen dependent. Patient just flew to [place] from [place] one week ago. She reported that her oxygen saturation dropped to 56% during flight. Patient has been suffering from chest pain for the last 4 days. The chest pain is located in left anterior chest. She describes it as pressure or heaviness. No radiation. Exertion makes it worse. It is consistent. This is associated with SOB. No fever or chills. No nausea or vomiting. No nasal congestion or sore throat. She said that she used to experience chest pain when she had fluid in her chest. She was then brought to the emergency room. In the ED, her vitals are stable. WBC 6.6. Hemoglobin 8.9. Creatinine 1.15. ProBNP 283. Chest x-ray and EKG unremarkable. Troponin negative. Echo in ED demonstrated ejection fraction 73% . She was admitted for further management. Allergies No Known Allergies Allergy (Unverified 11/21/17 18:53) Home medications list reviewed: Yes Home Medications: Metformin ER [Glucophage ER*] 500 mg PO DAILY 11/23/17 Acetazolamide [Diamox*] 250 mg IV DAILY vial 11/29/17 Albuterol Neb [Proventil 0.083% Neb Soln] 2.5 mg NEB [id number] amp 11/29/17 Arformoterol Tartrate [Brovana] 15 mcg NEB BIDRESP vial.neb 11/29/17 Aspirin [Aspirin EC] 81 mg PO DAILY #30 tablet. 11/29/17 Calcium Carbonate [Tums Regular*] 500 mg PO TID tab 11/29/17 Ensure High Protein 237 ml PO BID can 11/29/17 Hydralazine [Apresoline*] 10 mg IV Q4HP PRN vial 11/29/17 Hydrocodone 7.5/APAP 325 [[place] 7.5/325 mg*] 1 tab PO Q6H PRN tab 11/29/17 Insulin -Regular Human [Novolin -R*] See Protocol SQ ACHS ml 11/29/17 Ipratropium Neb [Atrovent*] 0.5 mg NEB [id number] amp 11/29/17 Ketorolac [Toradol*] 15 mg IV Q6H PRN vial 11/29/17 Metoprolol Tartrate [Lopressor 1 MG/Ml Inj*] 5 mg IV Q6H PRN vial 11/29/17 Metoprolol Tartrate [Lopressor*] 25 mg PO BID 6AM 6PM tab 11/29/17 Ondansetron [Zofran*] 4 mg IV Q6HP PRN vial 11/29/17 Pantoprazole [Protonix Tab*] 40 mg PO DAILYAC tab 11/29/17 Promethazine Inj [Phenergan -Inj*] 12.5 mg IV Q6H PRN vial 11/29/17 Sertraline [Zoloft*] 50 mg PO DAILY tab 11/29/17 Trazodone [Desyrel*] 50 mg PO BEDTIME PRN PRN tablet 11/29/17 allopurinoL [Zyloprim*] 100 mg PO DAILY tab 11/29/17 predniSONE [Deltasone*] 10 mg PO BID tab 11/29/17 - Past Medical/Surgical History Has patient received pneumonia vaccine in the past: Yes Diabetic: Yes -: Diabetes mellitus type 2 -: Hypertension -: CHF -: COPD, oxygen-dependent -: Atrial fibrillation -: Chronic anti coagulation-Coumadin -: Hyperlipidemia -: GERD -: Gout -: Former tobacco use -: CAD with previous stent -: abdominal hernia -: Cholecystectomy -: x3 -: 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 She has children here in the [facility], [place] and [place]. She travels periods at a time to each child. She is originally from [place]. - Family History Father -: Heart disease Notes: CHF Mother -: Heart disease - Social History Smoking Status: Former smoker Alcohol use: No CD- Drugs: No Caffeine use: Yes Review of Systems General: Weakness, Malaise Eyes: Unremarkable ENT: Unremarkable Respiratory: Cough, Shortness of Breath, SOB with Excertion Cardiovascular: Chest Pain Gastrointestinal: Unremarkable Genitourinary: Unremarkable Musculoskeletal: Unremarkable Integumentary: Unremarkable Neurological: Unremarkable Lymphatics: Unremarkable Physical Examination - Vital Signs Blood Pressure: 136/69 Pulse: 81 - Physical Exam General: Alert, Oriented x3, Cooperative HEENT: Atraumatic, Normocephalic, PERRLA, Mucous membr. moist/pink Neck: Supple, 2+ carotid pulse no bruit, JVD not distended Respiratory: Clear to auscultation bilaterally, Diminished Cardiovascular: No edema, Normal pulses, Regular rate/rhythm, Normal S1 S2, No murmurs Gastrointestinal: Hypoactive, Soft and benign, Non-distended, No ascites, No tenderness, No masses, No rebound, No guarding Musculoskeletal: No clubbing, No swelling, No contractures, No erythema, No tenderness, No warmth Integumentary: No rashes, No breakdown, No significant lesion, No tenderness/ swelling, No erythema, No warmth, No cyanosis Neurological: Normal speech, Normal strength at 5/5 x4 extr, Normal tone, Sensation intact, Cranial nerves 3-12 intact, Normal reflexes 2+, Normal affect - Studies Laboratory Data (last 24 hrs) 11/14/19 15:41: Troponin I < 0.02 11/14/19 12:30: PT 15.7 H, INR 1.35 11/14/19 12:20: WBC 6.6, Hgb 8.9 L, Hct 28.1 L, Plt Count 205 11/14/19 12:20: Sodium 143, Potassium 4.1, BUN 32 H, Creatinine 1.15, Glucose 93 , Magnesium 2.2, Total Bilirubin 0.4, AST 28, ALT 24, Alkaline Phosphatase 120 H , Lipase 159 Assessment and Plan - Plan 11/14/19: Patient presented for chest pain. She has a history of a fib, CAD, CHF , COPD, hypertension, and diabetes. Workup including troponin, EKG, chest x-ray , echo unremarkable. This is atypical chest pain. Will follow up troponin. Put her on tele monitoring. Started DuoNeb nebulization. Final Inspector Truck Trailer will be consulted. 1. Chest pain. atypical. workup unremarkable. Will follow up with trop. Cardio was consulted. will check D dimer. 2. COPD. No wheezing. started duoneb and O2. CXR unremarkble. 3. Diastolic CHF. No sign of fluid retension. On gentle diuresis. Home BB and spirinolactone was resumed. 4. A fib. HR under control. Resumed BB and Eliquis 5. GERD. Will resume home PPI 6. HTN. BP stable. On BB and spironolactone. 7. DM2. on SSI. A1c in AM 8. Pulmonary hypertension. Resumed home CV meds. Discharge Plan: Home Plan to discharge in: Unknown - Advance Directives Does patient have a Living Will: No Does patient have a Durable POA for Healthcare: No - Code Status/Comfort Care Code Status: Full Code Time Spent Managing Pts Care (In Minutes): 55
[2019-11-14 18:30] VITALS: O2SAT 98
[2019-11-14] MEDS ORDERED: ACETAMINOPHEN 500 MG TAB ONE (19:51)
[2019-11-14] MEDS: INSULIN -REGULAR HUMAN 50 UNIT/0.5 ML ML SQ SCH (21:00)
[2019-11-14] MEDS: IPRATROPIUM BROM 0.5MG/2.5ML NEB SCH (21:05)
[2019-11-14] MEDS: SPIRONOLACTONE 25 MG TABLET PO SCH (21:30)
[2019-11-14] MEDS: APIXABAN 2.5 MG TABLET PO SCH (21:30)
[2019-11-14] MEDS: METOPROLOL TAR 25 MG TAB PO SCH (21:30)
[2019-11-14 21:54] VITALS: BMI 32.2
[2019-11-15] MEDS: IPRATROPIUM BROM 0.5MG/2.5ML NEB SCH ×2 (02:15→08:20)
[2019-11-15 05:40] LABS: Absolute Lymphocytes (CBC) 0.8 K/uL (0.7-4.9); Basophils % 0.8 % (0-1.3); Hematocrit 27.4 % (36.0-45.0); Lymphocytes % 13.1 % (15.3-44.8); MPV 10.9 fL (7.6-11.3); RBC Red Blood Cell Count 2.94 M/uL (3.86-4.86)
[2019-11-15 06:08] LABS: Albumin 3.3 g/dL (3.4-5.0); Bilirubin Total 0.6 mg/dL (0.2-1.0); Magnesium 2.2 mg/dL (1.8-2.4); Potassium 3.9 mmol/L (3.5-5.1); Protein, Total 6.1 g/dL (6.4-8.2)
[2019-11-15] MEDS: METOPROLOL TAR 25 MG TAB PO SCH (06:13)
[2019-11-15] MEDS: INSULIN -REGULAR HUMAN 50 UNIT/0.5 ML ML SQ SCH ×2 (07:30→11:30)
[2019-11-15 08:27] VITALS: BP 115/56; TEMP 97.6
[2019-11-15] MEDS: APIXABAN 2.5 MG TABLET PO SCH (08:31)
[2019-11-15] MEDS: SPIRONOLACTONE 25 MG TABLET PO SCH (08:32)
[2019-11-15] MEDS ORDERED: FUROSEMIDE 20 MG/ 2ML VIAL IV SCH (09:00)
[2019-11-15] MEDS ORDERED: POTASSIUM 25 MEQ EFFERV TAB PO ONE (09:00)
--- NOTE | 2019-11-15 14:02 | CON ---
History Of Present Illness: Ms. Miller is 84. She came to the hospital because of dyspnea. Ms. Miller has severe underlying lung and heart disease. She has severe pulmonary hypertension, although her m ost recent echocardiogram indicated her pulmonary artery pressure is in the moderate range. She is u nder treatment for it from a women's basketball coach in [place]. She also sees a [place] operator Dr. Sethi at [place]. She is visiting here. She has a history of a stent in her heart. Since being i n the hospital cardiac enzymes are normal. An EKG reveals evidence of elevated venous pressure. No pulmonary edema. An echocardiogram reveals estimated PA pressure in the moderate range 50 mmHg or so , 55 is what the report gave out. She does not have left ventricular dysfunction or any segmental wa ll motion abnormality. Medications: Outpatient medications: Heparin, Sanctura, budesonide, codeine, cephalexin, atorvastat in, sertraline, lactulose, allopurinol, multivitamin, vitamin D3, potassium chloride, furosemide, zoya apentin, apixaban 2.5 b.i.d., metoprolol 25 b.i.d., spironolactone 25 b.i.d., omeprazole 20 b.i.d., a nd albuterol. Physical Examination: Vital Signs: 5 feet 7, 206 pounds. Her blood pressure is 115/56, heart rate is 64. General: Obese, alert, oriented, not in distress. Lungs: Do not reveal wheezes or crackles. Heart: Within normal limits, although the rhythm is a little bit irregular. One of her diagnosis is chronic atrial fibrillation. Extremities: No edema, cyanosis, or clubbing. Distal pulses are palpable. Her electrocardiogram shows atrial fib, heart rate 64, otherwise normal. Troponins are normal. Impression: The patient could probably be discharged today. She wants to go home. I do not think w damaris are treating her for any condition that requires hospitalization. All of her problems are chronic and seemingly stable. Thank you very much for your kind referral of Ms. Miller. I will follow her with you. TONY/HOUSTONL Voice ID: [id number] Report ID: [id number]
--- NOTE | 2019-11-15 21:50 | DS ---
Date of Discharge: 11/15/2019 Discharge Diagnoses: 1.Chest pain, rule out myocardial infarction. 2.Elevated D-dimer. 3.Atrial fibrillation. 4.Diastolic congestive heart failure. 5.Chronic obstructive pulmonary disease. 6.Hypertension. 7.Diabetes mellitus. Consult: Cardiology. Procedure: Echocardiogram in the emergency room showed [id number] mitral regurgitation, mild t ricuspid regurgitation, moderate pulmonary hypertension, estimated right ventricular systolic pressur e 55. History Of Present Illness: Please refer to admission note. Hospital Course: Initially, patient presented to the emergency room with a history of chest pain ove r a few days. She was visiting from [place]. Her O2 saturation apparently dropped during her flight. In the ER, she was evaluated. Her labs were fine except for anemia. BNP was 283. Chest x -ray, EKG was normal. Troponin was negative. Echo done in the emergency room showed an ejection fra ction of 73%. She was admitted overnight to be ruled out. Next cardiac enzymes continued to be nega tive. Dr. Sanchze had seen her this morning, advised she can be discharged. Patient will need stress test as outpatient. She was advised to avoid exertion. D-dimer was positive for 600. The patient already on anticoagulation, so I told ordering SCD given the patient had PE will not change the manag ement. Patient has not had any more chest pain and I thought doing CT scan is going to be mostly neg ative as patient has some elevated D-dimer. Currently, patient is comfortable. She wants to go home. She will be discharged in stable condition. She advised to avoid exertion again, fernando nue home medication and see primary care physician as soon as possible for stress test. Discharge Condition: Stable. Discharge Diet: Cardiac/1800 ADA. Discharge Activity: Avoid exertion. Physical Examination: Discharge vital signs: Blood pressure is 115/56, respiratory rate 18, pulse 64, temp is 97.6. General: Patient is alert and oriented x3. Does not look in any distress. HEENT: Atraumatic, normocephalic. PERRLA. Oral mucosa is moist. Neck: Supple. No JVD. No carotid bruit. Chest: Clear to auscultation with good air entry. Heart: Regular rate and rhythm. S1, S2 normal. No gallop or murmur. Abdomen: Soft, nontender. No masses. No hepatosplenomegaly. Positive bowel sounds. Extremities: No edema. No calf tenderness. Neurologic: Grossly intact. Discharge Medications: Albuterol inhaler as before 100 mg once a day, Eliquis 2.5 mg twic e a day, Lipitor 40 mg at bedtime, Pulmicort 0.5 inhaler twice a day, Keflex 250 mg orally once a day , vitamin D as before, Tylenol 3 one tablet b.i.d. as before, Lasix 20 mg daily, Neurontin 200 mg twi ce a day, lactulose 20 mg oral t.i.d., metoprolol 25 mg twice a day, multivitamin once a day, omepraz ole 20 mg twice a day, potassium chloride 20 mEq daily, Zoloft 50 mg twice a day, Aldactone 25 mg twi ce a day, Sanctura 20 mg at bedtime. TJ/ANASTASIYA Voice ID: [id number] Report ID: [id number]
== END 2019-11-15 12:35 | disposition home or self-care (01) ==
LOC: ER 11:33 → ERHOLD 17:44 → 4TH 19:56
PROVIDERS: ADMIT Internal Medicine; ATTEND Internal Medicine
DX: R07.9 Chest pain, unspecified (principal); R79.9 Abnormal finding of blood chemistry, unspecified; I48.91 Unspecified atrial fibrillation; I11.0 Hypertensive heart disease with heart failure; I50.32 Chronic diastolic (congestive) heart failure; J44.9 Chronic obstructive pulmonary disease, unspecified; E11.9 Type 2 diabetes mellitus without complications; Z99.81 Dependence on supplemental oxygen; Z79.01 Long term (current) use of anticoagulants; I25.10 Atherosclerotic heart disease of native coronary artery without angina pectoris; Z95.5 Presence of coronary angioplasty implant and graft
CPT/HCPCS: 93005; 93306; 87088; 85025 ×2; 80048; 36415 ×2; 86900; 83735 ×2; 86850; 84100; 85610; 86901; 82947 ×3; 85379; 80076; 84443; 81003; 83036; 84484 ×3; 83690; 80053; 83880; 71045; 94640; 94760 ×3; 96375; 96374; 99285; J1940 ×3; C9113; G0378 ×3; 87086

== ENCOUNTER 2021-04-02 17:59 | Inpatient (IN) | payer OTHER ==
[2021-04-02 19:12] LABS: Absolute Lymphocytes (CBC) 0.7 K/uL (0.7-4.9); Basophils % 0.4 % (0-1.3); Hematocrit 34.1 % (36.0-45.0); Lymphocytes % 10.1 % (15.3-44.8); MPV 10.1 fL (7.6-11.3); RBC Red Blood Cell Count 3.56 M/uL (3.86-4.86)
[2021-04-02 19:13] LABS: Protime INR 1.31
[2021-04-02 19:27] LABS: ALT/SGPT 21 U/L (12-78); AST/SGOT 21 U/L (15-37); Alkaline Phosphatase 102 U/L (45-117); BUN Blood Urea Nitrogen 24 mg/dL (7-18); Bicarbonate 32 mmol/L (21-32); Bilirubin Direct 0.2 mg/dL (0-0.2); Bilirubin Total 0.9 mg/dL (0.2-1.0); Glucose Level 121 mg/dL (74-106); Magnesium 1.8 mg/dL (1.8-2.4); NT PRO-BNP 502 pg/mL (<450); Potassium 4.1 mmol/L (3.5-5.1); Protein, Total 7.3 g/dL (6.4-8.2); Sodium Level 137 mmol/L (136-145); Troponin (Emerg Dept Use Only) < 0.02 ng/mL (0.0-0.045)
[2021-04-02] MEDS ORDERED: LEVALBUTEROL 1.25 MG/3 ML NEB ONE (19:44)
--- NOTE | 2021-04-02 19:52 | RAD REPORT ---
EXAM DESCRIPTION: RAD - Chest Single View - 04/02/2021 7:26 pm CLINICAL HISTORY: CONGESTION Chest pain. COMPARISON: <Comparisons> FINDINGS: Portable technique limits examination quality. Mild pulmonary edema is noted. The heart is quite prominent in size. No displaced fractures.Chondroid lesion proximal right humerus is stable. Moderate hiatal hernia suspected. IMPRESSION: Mild to moderate CHF.
[2021-04-02] MEDS ORDERED: predniSONE 20 MG TAB ONE (20:23)
[2021-04-02] MEDS ORDERED: FUROSEMIDE 40 MG/4 ML VIAL ONE (20:25)
--- NOTE | 2021-04-02 20:42 | ER ---
Nurse's Notes [facility] Name: Emi Miller Age: 85 yrs Sex: Female : 1935 Arrival Date: 04/02/2021 Time: 18:08 Bed 8 Private MD: Diagnosis: Heart failure, unspecified-acute on chronic congestive heart failure. Volume overload Presentation: 04/02 18:14 Chief complaint: Patient states: Pt stated,'I'm congested x 1 day and I get fluid kg overload easily. Also I saw my church history professor 03/24 and they called and said I need to have imagining done before I get back on a plane because I might have a blood clot.". Coronavirus screen: Client denies travel out of the [place] in the last 14 days. At this time, unable to obtain information related to travel outside the [place] At this time, the client does not indicate any symptoms associated with coronavirus-19. Ebola Screen: Patient negative for fever greater than or equal to 101.5 degrees Fahrenheit, and additional compatible Ebola Virus Disease symptoms Patient denies exposure to infectious person. Patient denies travel to an Ebola-affected area in the 21 days before illness onset. Initial Sepsis Screen: Does the patient meet any 2 criteria? No. Patient's initial sepsis screen is negative. Does the patient have a suspected source of infection? No. Patient's initial sepsis screen is negative. Risk Assessment: Do you want to hurt yourself or someone else? Patient reports no desire to harm self or others. Onset of symptoms was April 01, 2021. 18:14 Method Of Arrival: Wheelchair kg 18:14 Acuity: DERICK 3 kg Triage Assessment: 18:28 General: Appears in no apparent distress. Behavior is calm, cooperative, appropriate kg for age, quiet. Pain: Complains of pain in chest. Historical: - Allergies: 18:19 No Known Allergies; kg - Home Meds: 18:19 acetaminophen-codeine 300-30 mg Oral tab 1 tab twice a day [Active]; allopurinol 100 mg kg Oral tab 1 tab once daily [Active]; Eliquis 5 mg Oral tab 1 tab 2 times per day [Active]; gabapentin 300 mg Oral cap 1 cap twice a day [Active]; furosemide 20 mg oral tab 1 tab once daily [Active]; furosemide 20 mg Oral tab 1 tab once daily [Active]; allopurinol 100 mg Oral tab 1 tab once daily [Active]; metoprolol tartrate 25 mg Oral tab 1 tab 2 times per day [Active]; gabapentin 300 mg oral cap 1 cap BID [Active]; furosemide 20 mg Oral tab 1 tab 2 times per day [Active]; potassium chloride 20 mEq oral TbTQ 1 tab once daily [Active]; lactulose 10 gram/15 mL Oral soln 30 mL 3 times per day [Active]; Lipitor 40 mg Oral tab 1 tab once daily [Active]; budesonide .5mg/2ml oral [Active]; ProAir HFA inhalation [Active]; - PMHx: 18:19 Atrial Fib; CHF; COPD; Diabetes - NIDDM; Hypertension; Cirrhosis of liver; Gout; kg - PSHx: 18:19 section; 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 - Social history:: Smoking status: Patient denies any tobacco usage or history of. Patient uses. Screenin:29 Abuse screen: Denies threats or abuse. Denies injuries from another. Nutritional kg screening: No deficits noted. Tuberculosis screening: No symptoms or risk factors identified. Fall Risk None identified. Fall in past 12 months (25 points). Secondary diagnosis (15 points) No IV (0 pts). Ambulatory Aid- None/Bed Rest/Nurse Assist (0 pts). Gait- Normal/Bed Rest/Wheelchair (0 pts) Mental Status- Oriented to own ability (0 pts). Total Bailey Fall Scale indicates Low Risk Score (25-44 pts). Fall prevention measures have been instituted. Side Rails Up X 2 Placed close to Nursing Station Frequent Obs/Assesments occuring Family Present and informed to notify staff if they need to leave bedside As available Patient and Family Educated on Fall Prevention Program and strategies. Assessment: 19:39 General: Appears in no apparent distress. Behavior is calm, cooperative. Pain: Denies lp1 pain. Neuro: Level of Consciousness is awake, alert, obeys commands, Oriented to person, place, time, situation. Cardiovascular: Capillary refill < 3 seconds in bilateral fingers Patient's skin is warm and dry. Rhythm is irregular. Respiratory: Airway is patent Respiratory effort is even, unlabored, Breath sounds are clear in left posterior upper lobe, right posterior upper lobe and right posterior middle lobe Breath sounds are diminished in left posterior lower lobe and right posterior lower lobe. GI: Abdomen is non-distended. : No signs and/or symptoms were reported regarding the genitourinary system. EENT: No signs and/or symptoms were reported regarding the EENT system. Derm: Skin is pink, warm \\T\\ dry. Musculoskeletal: No deficits noted. 20:45 Reassessment: Patient appears in no apparent distress at this time. Assisted patient to [address], O2 noted to be at 87% on 3L NC during transfer. 21:30 Reassessment: Patient reports headache, Hospitalist notified. lp1 22:13 Reassessment: Patient appears in no apparent distress at this time. Patient and/or lp1 family updated on plan of care and expected duration. Pain level reassessed. Patient resting, eyes closed, respirations even, unlabored. Vital Signs: 18:14 BP 169 / 71; Pulse 95; Resp 20; Temp 98.8(O); Pulse Ox 97% on R/A; Weight 90.72 kg (R); kg Height 5 ft. 7 in. (170.18 cm) (R); Pain 5/10; 19:30 BP 166 / 76; Pulse 63; Resp 14; Pulse Ox 99% on 3 lpm NC; lp1 20:15 BP 167 / 58; Pulse 76; Resp 15; Pulse Ox 100% on 3 lpm NC; lp1 21:30 BP 174 / 61; Pulse 81; Resp 18; Pulse Ox 99% on 3 lpm NC; lp1 22:13 BP 151 / 71; Pulse 75; Resp 16; Pulse Ox 100% on 3 lpm NC; lp1 18:14 Body Mass Index 31.32 (90.72 kg, 170.18 cm) kg ED Course: 18:08 Patient arrived in ED. mr 18:19 Triage completed. kg 18:29 Patient has correct armband on for positive identification. Fall risk band placed. Bed kg in low position. Call light in reach. Side rails up X 1. 18:40 Omari Overton NP is PHCP. pm1 18:40 Connor Skaggs MD is Attending Physician. pm1 19:01 Inserted saline lock: 22 gauge in right antecubital area, using aseptic technique. ll1 Blood collected. 19:14 Kinjal Hansen, RN is Primary Nurse. lp1 19:25 XRAY Chest (1 view) In Process Unspecified. EDMS 19:39 Flu and/or RSV swab sent to lab. Strep swab sent to lab. lp1 19:40 Arm band placed on. lp1 20:41 Hermes Philip PA is Hospitalizing Provider. pm1 20:56 No provider procedures requiring assistance completed. Patient admitted, IV remains in lp1 place. Administered Medications: 19:37 Drug: Xopenex (levalbuterol) 2.5 mg Route: Inhalation; lp1 20:10 Drug: predniSONE 60 mg Route: PO; lp1 20:53 Follow up: Response: No adverse reaction lp1 20:10 Drug: Lasix (furosemide) 40 mg Route: IVP; Site: right antecubital; lp1 20:57 Follow up: Response: No adverse reaction lp1 21:33 Drug: Tylenol 500 mg Route: PO; lp1 22:14 Follow up: Response: No adverse reaction lp1 Output: 20:53 Urine: 350ml (Voided); Total: 350ml. lp1 Outcome: 20:42 Decision to Hospitalize by Provider. pm1 20:56 Condition: stable lp1 20:56 Instructed on the need for admit. 22:13 Admitted to Med/surg via stretcher, room 209, with oxygen, with chart, Report called to lp1 JENNIFER Tiwari 22:36 Patient left the ED. lp1 Signatures: Dispatcher [employer] [facility] Vinita Dodge mr Kinjal Hansen, RN RN lp1 Omari Overton, [employer] pm1 Karen Raya RN RN 1 Lilo Layne RN RN kg
--- NOTE | 2021-04-02 20:42 | EDPHYS ---
Physician Documentation [facility] Name: Emi Miller Age: 85 yrs Sex: Female : 1935 Arrival Date: 04/02/2021 Time: 18:08 Bed 8 Private MD: ED Physician Connor Skaggs HPI: 04/02 18:52 This 85 yrs old Female presents to ER via Wheelchair with complaints of pm1 Congestion. 18:52 The patient has shortness of breath at rest. Onset: The symptoms/episode began/occurred pm1 yesterday. Duration: The symptoms are continuous. The patient's shortness of breath is aggravated by exertion, is alleviated by nothing. Associated signs and symptoms: Pertinent positives: chest pain, non-productive cough, Pertinent negatives: diaphoresis, fever, nausea, vomiting. Severity of symptoms: in the emergency department the symptoms are worse. The patient has experienced similar episodes in the past, multiple times, today's symptoms are similar, to previous CHF exacerbation. The patient has been recently seen by a physician: pulmonology. Historical: - Allergies: 18:19 No Known Allergies; kg - Home Meds: 18:19 acetaminophen-codeine 300-30 mg Oral tab 1 tab twice a day [Active]; allopurinol 100 mg kg Oral tab 1 tab once daily [Active]; Eliquis 5 mg Oral tab 1 tab 2 times per day [Active]; gabapentin 300 mg Oral cap 1 cap twice a day [Active]; furosemide 20 mg oral tab 1 tab once daily [Active]; furosemide 20 mg Oral tab 1 tab once daily [Active]; allopurinol 100 mg Oral tab 1 tab once daily [Active]; metoprolol tartrate 25 mg Oral tab 1 tab 2 times per day [Active]; gabapentin 300 mg oral cap 1 cap BID [Active]; furosemide 20 mg Oral tab 1 tab 2 times per day [Active]; potassium chloride 20 mEq oral TbTQ 1 tab once daily [Active]; lactulose 10 gram/15 mL Oral soln 30 mL 3 times per day [Active]; Lipitor 40 mg Oral tab 1 tab once daily [Active]; budesonide .5mg/2ml oral [Active]; ProAir HFA inhalation [Active]; - PMHx: 18:19 Atrial Fib; CHF; COPD; Diabetes - NIDDM; Hypertension; Cirrhosis of liver; Gout; kg - PSHx: 18:19 section; 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 - Social history:: Smoking status: Patient denies any tobacco usage or history of. Patient uses. ROS: 18:52 Constitutional: Negative for fever, chills, and weight loss, Eyes: Negative for injury, pm1 pain, redness, and discharge, ENT: Negative for injury, pain, and discharge, Neck: Negative for injury, pain, and swelling. 18:52 Abdomen/GI: Negative for abdominal pain, nausea, vomiting, diarrhea, and constipation, Back: Negative for injury and pain, MS/Extremity: Negative for injury and deformity, Skin: Negative for injury, rash, and discoloration, Neuro: Negative for headache, weakness, numbness, tingling, and seizure. 18:52 Cardiovascular: Positive for chest pain, Negative for edema. 18:52 Respiratory: Positive for 18:52 Respiratory: Positive for cough, shortness of breath. 18:52 All other systems are negative. Exam: 18:52 Constitutional: This is a well developed, well nourished patient who is awake, alert, pm1 and in no acute distress. Head/Face: Normocephalic, atraumatic. 18:52 Back: No spinal tenderness. No costovertebral tenderness. Full range of motion. Skin: Warm, dry with normal turgor. Normal color with no rashes, no lesions, and no evidence of cellulitis. MS/ Extremity: Pulses equal, no cyanosis. Neurovascular intact. Full, normal range of motion. 18:52 Eyes: Exam is negative for acute changes, Periorbital structures: appear normal, Extraocular movements: intact throughout, Conjunctiva: normal, no injection, Sclera: no acute changes, icterus, is not appreciated. 18:52 ENT: Mouth: is normal, Lips: normal, Oral mucosa: normal, pink and intact, moist. 18:52 Cardiovascular: Rate: normal, Rhythm: regular, Pulses: no pulse deficits are appreciated. 18:52 Respiratory: the patient does not display signs of respiratory distress, Respirations: normal, Breath sounds: decreased breath sounds, that are mild, are located in both bases. 18:52 Abdomen/GI: Inspection: abdomen appears normal, Palpation: abdomen is soft and non-tender. 18:52 Neuro: Exam negative for acute changes, Orientation: is normal, Mentation: is normal, Motor: is normal, moves all fours. Vital Signs: 18:14 BP 169 / 71; Pulse 95; Resp 20; Temp 98.8(O); Pulse Ox 97% on R/A; Weight 90.72 kg (R); kg Height 5 ft. 7 in. (170.18 cm) (R); Pain 5/10; 19:30 BP 166 / 76; Pulse 63; Resp 14; Pulse Ox 99% on 3 lpm NC; lp1 20:15 BP 167 / 58; Pulse 76; Resp 15; Pulse Ox 100% on 3 lpm NC; lp1 21:30 BP 174 / 61; Pulse 81; Resp 18; Pulse Ox 99% on 3 lpm NC; lp1 22:13 BP 151 / 71; Pulse 75; Resp 16; Pulse Ox 100% on 3 lpm NC; lp1 18:14 Body Mass Index 31.32 (90.72 kg, 170.18 cm) kg MDM: 18:40 Patient medically screened. pm1 20:40 Counseling: I had a detailed discussion with the patient and/or guardian regarding: the pm1 historical points, exam findings, and any diagnostic results supporting the discharge/admit diagnosis, lab results, radiology results, the need for further work-up and treatment in the hospital. 22:01 Data reviewed: vital signs. Data interpreted: Pulse oximetry: on 2L(s) per nasal pm1 canula, is 100 %. Interpretation: normal. 04/02 18:42 Order name: Basic Metabolic Panel; Complete Time: 19:36 pm1 04/02 18:42 Order name: CBC with Diff; Complete Time: 19:36 pm1 04/02 18:42 Order name: LFT's; Complete Time: 19:36 pm1 04/02 18:42 Order name: Magnesium; Complete Time: 19:36 pm1 04/02 18:42 Order name: NT PRO-BNP; Complete Time: 19:36 pm1 04/02 18:42 Order name: PT-INR; Complete Time: 19:36 pm1 04/02 18:42 Order name: Troponin (emerg Dept Use Only); Complete Time: 19:36 pm1 04/02 18:42 Order name: XRAY Chest (1 view); Complete Time: 20:02 pm1 04/02 18:42 Order name: Flu; Complete Time: 20:49 pm1 04/02 20:53 Order name: Urine Dipstick-Ancillary; Complete Time: 21:00 EDMS 04/02 21:33 Order name: SARS-COV-2 RT PCR; Complete Time: 22:01 EDMS 04/02 18:42 Order name: EKG; Complete Time: 18:43 pm1 04/02 18:42 Order name: Cardiac monitoring; Complete Time: 19:38 pm1 04/02 18:42 Order name: EKG - Nurse/Tech; Complete Time: 18:49 pm1 04/02 18:42 Order name: IV Saline Lock; Complete Time: 19:02 pm1 04/02 18:42 Order name: Labs collected and sent; Complete Time: 19:02 pm1 04/02 18:42 Order name: O2 Per Protocol; Complete Time: 19:38 pm1 04/02 18:42 Order name: O2 Sat Monitoring; Complete Time: 19:38 pm1 Administered Medications: 19:37 Drug: Xopenex (levalbuterol) 2.5 mg Route: Inhalation; lp1 20:10 Drug: predniSONE 60 mg Route: PO; lp1 20:53 Follow up: Response: No adverse reaction lp1 20:10 Drug: Lasix (furosemide) 40 mg Route: IVP; Site: right antecubital; lp1 20:57 Follow up: Response: No adverse reaction lp1 21:33 Drug: Tylenol 500 mg Route: PO; lp1 22:14 Follow up: Response: No adverse reaction lp1 Disposition Summary: 04/02/21 20:42 Hospitalization Ordered Hospitalization Status: Observation pm1 Provider: Hermes Philip pm1 Location: Telemetry/MedSurg (observation) pm1 Condition: Stable pm1 Problem: new pm1 Symptoms: have improved pm1 Bed/Room Type: Standard pm1 Room Assignment: 209(04/02/21 21:37) mw Diagnosis - Heart failure, unspecified - acute on chronic congestive heart failure. Volume pm1 overload Forms: - Medication Reconciliation Form pm1 - SBAR form pm1 Addendum: 04/04/2021 13:39 Co-signature as Attending Physician, Connor Skaggs MD I agree with the assessment and k dr plan of care. Signatures: Dispatcher [employer] EDMS Pinky Marshall RN RN Connor Skaggs MD MD [facility] Kinjal Hansen RN RN lp1 Omari Overton, FURNITURE RESTORER FURNITURE RESTORER pm1 Lilo Layne RN RN kg Corrections: (The following items were deleted from the chart) 04/02 20:15 18:42 CORONAVIRUS+MR.LAB.BRZ ordered. EDPR EDMS 21:37 20:42 pm1 ximena
[2021-04-02 20:53] LABS: Urine Blood Trace-intact (Negative); Urine Glucose Negative (Negative); Urine Protein Negative (Negative); Urine Specific Gravity 1.015 (1.005-1.030)
--- NOTE | 2021-04-02 21:32 | P.HP ---
Certification for Inpatient Patient admitted to: Observation With expected LOS: <2 Midnights Patient will require the following post-hospital care: None Practitioner: I am a practitioner with admitting privileges, knowledge of patient current condition, hospital course, and medical plan of care. Services: Services provided to patient in accordance with Admission requirements found in Title 42 Section 412.3 of the Code of Federal Regulations <Hermes Philip - Last Filed: 04/02/21 21:26> Patient History Date of Service: 04/02/21 Reason for admission: CHF exacerbation History of Present Illness: Ms. Miller is an 85 yo F with afib on chronic anticoagulation, CHF, COPD on Home O2, DM, HTN, cirrhosis here today for one day of SOB and tightness in her abdomen. She reports mild improvement of symptoms with Lasix. Reports orthopnea. Denies cough, wheezing, PND. CXR shows mild to moderate CHF. 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 She has children here in the area, [place], [place]. She travels periods at a time to each child. She is originally from [place]. - Family History Father -: Heart disease Notes: CHF Mother -: Heart disease - Social History Smoking Status: Former smoker Alcohol use: No CD- Drugs: No Caffeine use: Yes Place of Residence: Home <Hermes Philip - Last Filed: 04/02/21 21:26> Date of Service: 04/02/21 <Austin Lewis - Last Filed: 04/04/21 01:24> Allergies No Known Allergies Allergy (Verified 04/02/21 23:04) Home Medications: Acetaminophen with Codeine [Tylenol with-Codeine #3 Tablet] 1 tab PO PRN PRN 04/02/21 Allopurinol 100 mg PO DAILY 04/02/21 Apixaban [Eliquis *] 2.5 mg PO BID 04/02/21 Atorvastatin Calcium [Lipitor] 40 mg PO BEDTIME 04/02/21 Furosemide [Lasix*] 40 mg PO BID 04/02/21 Gabapentin 300 mg PO BID 04/02/21 Lactulose 30 ml PO TID 04/02/21 Metoprolol Tartrate 25 mg PO BID 04/02/21 Multivitamin 1 tab PO DAILY 04/02/21 Omeprazole 20 mg PO BID 04/02/21 Potassium Chloride 20 meq PO DAILY 04/02/21 Spironolactone [Aldactone*] 25 mg PO BID 04/02/21 Review of Systems 10-point ROS is otherwise unremarkable Respiratory: Shortness of Breath Cardiovascular: Orthopnea <Hermes Philip - Last Filed: 04/02/21 21:26> Physical Examination - Physical Exam General: Alert, In no apparent distress HEENT: Atraumatic, PERRLA, Mucous membr. moist/pink, EOMI, Sclerae nonicteric Neck: Supple, 2+ carotid pulse no bruit, No LAD, Without JVD or thyroid abnormality Respiratory: Diminished, Crackles/rales Cardiovascular: No edema, Normal pulses, Normal S1 S2, No gallops, No rubs, Other (afib, rate controlled) Capillary refill: <2 Seconds Gastrointestinal: Normal bowel sounds, No tenderness Musculoskeletal: No tenderness Integumentary: No rashes Neurological: Normal speech, Normal strength at 5/5 x4 extr, Normal tone, Normal affect Lymphatics: No axilla or inguinal lymphadenopathy - Studies Laboratory Data (last 24 hrs) 04/02/21 18:55: PT 15.1 H, INR 1.31 04/02/21 18:55: WBC 7.20, Hgb 11.6 L, Hct 34.1 L, Plt Count 141 L 04/02/21 18:55: Sodium 137, Potassium 4.1, BUN 24 H, Creatinine 0.91, Glucose 121 H, Magnesium 1.8, Total Bilirubin 0.9, AST 21, ALT 21, Alkaline Phosphatase 102 Microbiology Data (last 24 hrs): 04/02/21 19:30 Nasopharnyx Influenza Type A Antigen Screen - Final 04/02/21 19:30 Nasopharnyx Influenza Type B Antigen Screen - Final <Hermes Philip - Last Filed: 04/02/21 21:26> - Studies Microbiology Data (last 24 hrs): 04/02/21 19:30 Nasopharnyx Influenza Type A Antigen Screen - Final 04/02/21 19:30 Nasopharnyx Influenza Type B Antigen Screen - Final <LewisAustin Jaimie - Last Filed: 04/04/21 01:24> Assessment and Plan - Problems (Diagnosis) (1) CHF (congestive heart failure) Onset Date: 11/26/17 Current Visit: No Status: Acute Qualifiers: Heart failure type: unspecified Heart failure chronicity: acute on chronic Qualified Code(s): I50.9 - Heart failure, unspecified (2) COPD (chronic obstructive pulmonary disease) Onset Date: 11/26/17 Current Visit: No Status: Chronic Qualifiers: COPD type: unspecified COPD Qualified Code(s): J44.9 - Chronic obstructive pulmonary disease, unspecified (3) Shortness of breath Onset Date: 11/26/17 Current Visit: No Status: Acute (4) Atrial fibrillation Onset Date: 11/26/17 Current Visit: No Status: Chronic Qualifiers: Atrial fibrillation type: unspecified Qualified Code(s): I48.91 - Unspecified atrial fibrillation (5) CAD (coronary artery disease) Onset Date: 11/26/17 Current Visit: No Status: Chronic Qualifiers: Coronary Disease-Associated Artery/Lesion type: [place] artery [place] vs. transplanted heart: [place] heart Associated angina: without angina Qualified Code(s): I25.10 - Atherosclerotic heart disease of [place] coronary artery without angina pectoris (6) Chronic anticoagulation Onset Date: 11/26/17 Current Visit: No Status: Chronic (7) Diabetes mellitus Onset Date: 11/26/17 Current Visit: No Status: Chronic Qualifiers: Diabetes mellitus type: type 2 Diabetes mellitus alf insulin use: without alf use Diabetes mellitus complication status: with kidney complications Diabetes mellitus complication detail: with chronic kidney disease Chronic kidney disease stage 3 subtype: stage 3a (GFR 45-59) (8) Hypertension Onset Date: 11/26/17 Current Visit: No Status: Chronic Qualifiers: Hypertension type: primary hypertension Qualified Code(s): I10 - Essential (primary) hypertension (9) Oxygen dependent Onset Date: 11/26/17 Current Visit: No Status: Chronic - Plan continue IV Lasix 40mg BID fluid restrict, daily weights, low sodium diet hydralazine PRN for BP spikes O2 as needed, breathing treatments as needed continue home eliquis reconcile and continue home medications Discharge Plan: Home Plan to discharge in: 24 Hours - Advance Directives Does patient have a Living Will: No Does patient have a Durable POA for Healthcare: No - Code Status/Comfort Care Code Status Assessed: Yes (full code ) Critical Care: No Time Spent Managing Pts Care (In Minutes): 70 <Hermes Philip - Last Filed: 04/02/21 21:26> Date of Service: 04/02/21 Subjective: Agree with plan of care as mentioned above. Patient still with shortness of breath. Physical Examination: Vitals: Afebrile vital signs are stable Cardiovascular exam: Regular rate rhythm systolic ejection murmur 2/6 Lungs: Expiratory wheezing with basilar crackles Extremities: Patient with no significant lower extremity edema Diagnostic data has been reviewed ASST: 1. CHF exacerbation 2. COPD exacerbation PLAN: 1. Continue with current plan of care <Austin Lewis - Last Filed: 04/04/21 01:24>
[2021-04-02] MEDS ORDERED: ACETAMINOPHEN 500 MG TAB ONE (21:53)
[2021-04-02] MEDS ORDERED: HYDRALAZINE HCL 20 MG/ML VIAL IV PRN (22:26)
[2021-04-02] MEDS ORDERED: APIXABAN 5 MG TABLET PO SCH (22:26)
[2021-04-02] MEDS: INSULIN -REGULAR HUMAN 50 UNIT/0.5 ML ML SQ SCH (22:26)
[2021-04-02] MEDS ORDERED: LEVALBUTEROL 0.63 MG/3 ML NEB NEB PRN (22:26)
[2021-04-02] MEDS ORDERED: ONDANSETRON 4 MG/2 ML VIAL IV PRN (22:26)
[2021-04-02] MEDS ORDERED: ACETAMINOPHEN 500 MG TAB PO PRN (22:26)
[2021-04-02] MEDS: ATORVASTATIN 40 MG TAB PO SCH (23:33)
[2021-04-03] MEDS: IPRATROPIUM BROM 0.5MG/2.5ML NEB SCH ×4 (00:25→20:20)
[2021-04-03] MEDS: METOPROLOL TAR 25 MG TAB PO SCH ×2 (05:16→17:34)
[2021-04-03] MEDS: PANTOPRAZOLE 40MG TABLET PO SCH (06:13)
[2021-04-03 06:18] LABS: Absolute Lymphocytes (CBC) 0.4 K/uL (0.7-4.9); Basophils % 0.5 % (0-1.3); Hematocrit 35.3 % (36.0-45.0); Lymphocytes % 5.8 % (15.3-44.8); MPV 9.8 fL (7.6-11.3); RBC Red Blood Cell Count 3.64 M/uL (3.86-4.86)
[2021-04-03 06:35] LABS: Albumin 3.8 g/dL (3.4-5.0); Bilirubin Total 0.8 mg/dL (0.2-1.0); Magnesium 1.9 mg/dL (1.8-2.4); Phosphorus 3.8 mg/dL (2.5-4.9); Potassium 4.4 mmol/L (3.5-5.1)
[2021-04-03] MEDS: INSULIN -REGULAR HUMAN 50 UNIT/0.5 ML ML SQ SCH ×4 (07:30→22:25)
[2021-04-03] MEDS: FUROSEMIDE 40 MG/4 ML VIAL IV SCH ×2 (08:25→17:32)
[2021-04-03] MEDS: POTASSIUM CL SA 10 MEQ TAB PO SCH (08:25)
[2021-04-03] MEDS: LACTULOSE 20 GM/30 ML UCUP PO SCH ×3 (08:26→22:25)
[2021-04-03] MEDS: SPIRONOLACTONE 25 MG TABLET PO SCH ×2 (08:26→22:25)
[2021-04-03] MEDS: GABAPENTIN 300 MG CAP PO SCH ×2 (08:26→22:25)
[2021-04-03] MEDS: MULTIVITAMIN TAB PO SCH (08:26)
[2021-04-03] MEDS: APIXABAN 5 MG TABLET PO SCH ×2 (08:26→22:25)
[2021-04-03] MEDS: allopurinoL 100 MG TAB PO SCH (08:26)
[2021-04-03 10:38] LABS: White Blood Cell Scan OK (OK)
[2021-04-03 10:39] LABS: Blood Morphology Comment NOT SEEN (NOT SEEN); Platelet Estimate ADEQ
[2021-04-03] MEDS: CODEINE 30MG/APAP 300MG TAB PO PRN (13:11)
--- NOTE | 2021-04-03 13:46 | EKG ---
Test Date: 2021-04-02 Test Time: 18:50:41 Numerical Control Operator: TJ MEASUREMENT RESULTS: Intervals: Rate: 81 AR: QRSD: 98 QT: 380 QTc: 441 [place]: P: AR: QRS: -30 T: 24 INTERPRETIVE STATEMENTS: Atrial fibrillation Left axis deviation Possible Anterior infarct, age undetermined Abnormal ECG Compared to ECG 11/14/2019 12:49:58 Left-axis deviation now present Myocardial infarct finding now present Electronically Signed On 04-03-21 13:45:32 CDT by Juaquin Ko
[2021-04-03] MEDS ORDERED: METHYLPREDNISOLONE 125 MG INJ IV ONE (15:00)
[2021-04-03] MEDS: METHYLPREDNISOLONE 125 MG INJ IV SCH ×2 (17:31→23:22)
[2021-04-03] MEDS: ATORVASTATIN 40 MG TAB PO SCH (22:24)
--- NOTE | 2021-04-04 01:30 | P.PN ---
Subjective Date of Service: 04/03/21 Patient has been traveling quite a bit. She has gone to [place] to visit her son last week. This week she is visiting her daughter in [place]. She became really short of breath and congested. She could not catch her breath. She was admitted and she has been given IV diuretics. She is still tachypneic and feeling short of breath especially when she ambulates. She is sitting up in bed and appears to be tachypneic. She is complaining of a lot of congestion. Chest x-ray revealed pulmonary edema but I believe she also has COPD exacerbation. Especially this time of the year. Will continue with IV diuretics but will add IV steroids along with neb treatments as needed. Continue with her inhaler therapy. Review of Systems 10-point ROS is otherwise unremarkable Physical Examination - Vital Signs Temperature: 97 F Blood Pressure: 147/67 Pulse: 72 Respirations: 18 Pulse Ox (%): 97 - Physical Exam General: Alert, In no apparent distress, Oriented x3 HEENT: Atraumatic, PERRLA, EOMI Neck: Supple, JVD distended Respiratory: Diminished, Expiratory wheezes Cardiovascular: Regular rate/rhythm, Normal S1 S2, Systolic murmur Gastrointestinal: Normal bowel sounds, Soft and benign, Non-distended, No tenderness Musculoskeletal: No clubbing, No tenderness, Swelling Integumentary: No rashes Neurological: Sensation intact, Cranial nerves 3-12 intact - Studies Microbiology Data (last 24 hrs): 04/02/21 19:30 Nasopharnyx Influenza Type A Antigen Screen - Final 04/02/21 19:30 Nasopharnyx Influenza Type B Antigen Screen - Final Medications List Reviewed: Yes Assessment & Plan - Problems (Diagnosis) (1) CHF (congestive heart failure) Onset Date: 11/26/17 Current Visit: Yes Status: Acute Qualifiers: Heart failure type: diastolic Heart failure chronicity: acute on chronic Qualified Code(s): I50.33 - Acute on chronic diastolic (congestive) heart failure (2) Pulmonary hypertension Current Visit: Yes Status: Acute (3) Shortness of breath Onset Date: 11/26/17 Current Visit: Yes Status: Acute (4) Atrial fibrillation Onset Date: 11/26/17 Current Visit: No Status: Chronic Qualifiers: Atrial fibrillation type: unspecified Qualified Code(s): I48.91 - Unspecified atrial fibrillation (5) CAD (coronary artery disease) Onset Date: 11/26/17 Current Visit: No Status: Chronic Qualifiers: Coronary Disease-Associated Artery/Lesion type: [place] artery [place] vs. transplanted heart: [place] heart Associated angina: without angina Qualified Code(s): I25.10 - Atherosclerotic heart disease of [place] coronary artery without angina pectoris (6) COPD (chronic obstructive pulmonary disease) Onset Date: 11/26/17 Current Visit: Yes Status: Chronic Qualifiers: COPD type: COPD with acute exacerbation Qualified Code(s): J44.1 - Chronic obstructive pulmonary disease with (acute) exacerbation (7) Diabetes mellitus Onset Date: 11/26/17 Current Visit: No Status: Chronic Qualifiers: Diabetes mellitus type: type 2 Diabetes mellitus termite control representative insulin use: without alf use Diabetes mellitus complication status: with kidney complications Diabetes mellitus complication detail: with chronic kidney disease Chronic kidney disease stage 3 subtype: stage 3a (GFR 45-59) (8) Hypertension Onset Date: 11/26/17 Current Visit: No Status: Chronic Qualifiers: Hypertension type: primary hypertension Qualified Code(s): I10 - Essential (primary) hypertension - Plan 1. Add steroids along with diuretics and continue with neb treatments as needed along with inhaler therapy 2. May repeat chest x-ray in the morning 3. Cardiology consultation 4. Patient remains short of breath and will need to change her status to inpatient hospitalization as her respiratory status has not significantly improved with diuresing. She apparently has CHF and a COPD exacerbation and needs to get started on IV steroids as well as IV diuretics. 5. Aggressive diuresis 6. Strict I's and O's 7. Repeat CXR 8. Daily weights 9. Education regarding diet and treatment of congestive heart failure Patient has home oxygen. Patient with numerous comorbidities and will continue home medications at this time. Discharge Plan: Home Plan to discharge in: Greater than 2 days - Advance Directives Does patient have a Living Will: No Does patient have a Durable POA for Healthcare: No
[2021-04-04] MEDS: IPRATROPIUM BROM 0.5MG/2.5ML NEB SCH ×2 (01:50→08:05)
[2021-04-04] MEDS: METOPROLOL TAR 25 MG TAB PO SCH (05:54)
[2021-04-04] MEDS: PANTOPRAZOLE 40MG TABLET PO SCH (05:54)
[2021-04-04] MEDS: METHYLPREDNISOLONE 125 MG INJ IV SCH ×2 (06:00→12:00)
[2021-04-04] MEDS ORDERED: FUROSEMIDE 20 MG/ 2ML VIAL IV SCH (06:00)
[2021-04-04 06:04] VITALS: BMI 30.9
--- NOTE | 2021-04-04 06:56 | P.DS ---
Admission Date: 04/04/21 Discharge Date: 04/04/21 Primary Care Provider: Alek Perry Disposition: ROUTINE DISCHARGE Discharge Condition: GOOD Reason for Admission: CHF exacerbation Consultations: None Procedures: COVID: Negative CXR: FINDINGS: Portable technique limits examination quality. Mild pulmonary edema is noted. The heart is quite prominent in size. No displaced fractures.Chondroid lesion proximal right humerus is stable. Moderate hiatal hernia suspected. IMPRESSION: Mild to moderate CHF. Medical Problem List: Shortness of breath secondary to acute on chronic diastolic CHF with pulmonary hypertension and COPD exacerbation on chronic oxygen Chronic atrial fibrillation on chronic anticoagulation therapy CAD Diabetes mellitus type 2 diet controlled Diabetic neuropathy GERD Hyperlipidemia Hypertension Obesity, BMI greater than 30 Brief History of Present Illness: 85-year-old female with multiple medical problems including atrial fibrillation on chronic anticoagulation therapy, CHF, COPD, hypertension, hyperlipidemia and chronic oxygen. Patient had increasing shortness of breath. Patient was evaluated in the emergency room. Chest x-ray revealed pulmonary edema suggestive of CHF. Patient also had some findings of of COPD. Patient admitted for treatment. Patient is originally from [place]. She has been visiting her children locally and in [place]. Hospital Course: Patient presented with shortness of breath secondary to acute on chronic diastolic CHF with pulmonary hypertension and COPD exacerbation. Patient is on chronic oxygen. Patient visiting in the area from [place]. She plans to go back soon but will go to [place], [place] to visit a son. Patient was given IV diuresis with IV steroids with improvement. Patient appears to be at her baseline level. Patient had not been using her Lasix twice a day which had been prescribed by her pulmonary doctor. Patient had been taking this once daily. At discharge for her CHF, patient will continue with the 1500 cc/day fluid restriction and low-salt diet. Recommend to monitor her weight daily. If her weight increases by more than 5 pounds further adjustment in medication may be required. At discharge she will continue with Lasix 40 mg 1 pill twice daily, Aldactone 25 mg 1 pill twice daily, and potassium supplementation 20 mEq daily. Recommend to recheck BMP in 1 week to monitor her levels. Patient will continue with oxygen to maintain sats above 93%. Patient currently back to her baseline at 3 L per nasal cannula. Consider AMMY inhibitor or ARB inhibitor in the future for her CHF if blood pressures not well controlled. For her COPD, patient will continue with prednisone 10 mg 1 pill daily for the next 5 days. Patient will continue with Symbicort 2 puffs twice daily. Education on CHF and COPD provided. Recommend follow-up with her PCP within 1 to 2 weeks to follow- up this hospitalization. Recommend to recheck chest x-ray in 2 to 4 weeks to monitor resolution. Patient with chronic atrial fibrillation on chronic anticoagulation therapy, hypertension and CAD. This has remained stable. At discharge patient will continue with Eliquis 2.5 mg 1 pill twice daily. Patient also takes metoprolol 25 mg 1 pill twice daily. Recommend to maintain blood pressure less than 130/80. Further adjustment can be done by her PCP. Recommend follow-up with her drug room clerk in 2 to 4 weeks to monitor her progress. Patient with hyperlipidemia. At discharge patient will continue with Lipitor 40 mg daily. Patient with GERD. At discharge she will continue with Prilosec 20 mg 1 pill twice daily. Patient with diabetes mellitus type 2. This appears to be diet controlled. Recommend to recheck hemoglobin A1c every 3 months to monitor her progress. Recommend to monitor blood sugar daily. Recommend to maintain blood sugars less than 140 fasting and less than 200 after meals. If blood sugars remain above 200 she can contact her PCP for further recommendation. Patient also takes multivitamin daily, allopurinol 100 mg daily, and lactulose. Patient with diabetic neuropathy. At discharge she will continue with gabapentin 300 mg 1 pill twice daily. Patient will continue with Tylenol with codeine as directed. Vital Signs/Physical Exam: Temp Pulse Resp BP Pulse Ox 96.9 F 68 16 138/61 96 04/04/21 04:00 04/04/21 05:54 04/04/21 04:00 04/04/21 05:54 04/04/21 04:00 General: Alert, In no apparent distress, Oriented x3, Cooperative HEENT: Atraumatic Neck: Supple Respiratory: Clear to auscultation bilaterally, Normal air movement Cardiovascular: Irregular heart rate/rhythm (A. fib rate controlled) Gastrointestinal: Normal bowel sounds, No tenderness, No masses, No rebound, No guarding Musculoskeletal: No erythema, No tenderness, No warmth Integumentary: No tenderness/swelling Neurological: Normal speech, Normal strength at 5/5 x4 extr, Normal tone, Normal affect Laboratory Data at Discharge: WBC 7.00 K/uL (4.3-10.9) 04/03/21 06:01 Hgb 11.7 g/dL (12.0-15.0) L 04/03/21 06:01 Hct 35.3 % (36.0-45.0) L 04/03/21 06:01 Plt Count 145 K/uL (152-406) L 04/03/21 06:01 PT 15.1 SECONDS (9.5-12.5) H 04/02/21 18:55 INR 1.31 04/02/21 18:55 Sodium 138 mmol/L (136-145) 04/03/21 06:01 Potassium 4.4 mmol/L (3.5-5.1) 04/03/21 06:01 BUN 27 mg/dL (7-18) H 04/03/21 06:01 Creatinine 0.95 mg/dL (0.55-1.3) 04/03/21 06:01 Glucose 166 mg/dL (74-106) H 04/03/21 06:01 Phosphorus 3.8 mg/dL (2.5-4.9) 04/03/21 06:01 Magnesium 1.9 mg/dL (1.8-2.4) 04/03/21 06:01 Total Bilirubin 0.8 mg/dL (0.2-1.0) 04/03/21 06:01 AST 24 U/L (15-37) 04/03/21 06:01 ALT 22 U/L (12-78) 04/03/21 06:01 Alkaline Phosphatase 95 U/L (45-117) 04/03/21 06:01 Triglycerides 51 mg/dL (<150) 04/03/21 06:01 Cholesterol 188 mg/dL (<200) 04/03/21 06:01 HDL Cholesterol 59 mg/dL (40-60) 04/03/21 06:01 Cholesterol/HDL Ratio 3.19 04/03/21 06:01 Home Medications: Acetaminophen with Codeine [Tylenol with-Codeine #3 Tablet] 1 tab PO PRN PRN 04/02/21 Allopurinol 100 mg PO DAILY 04/02/21 Apixaban [Eliquis *] 2.5 mg PO BID 04/02/21 Atorvastatin Calcium [Lipitor] 40 mg PO BEDTIME 04/02/21 Gabapentin 300 mg PO BID 04/02/21 Lactulose 30 ml PO TID 04/02/21 Metoprolol Tartrate 25 mg PO BID 04/02/21 Multivitamin 1 tab PO DAILY 04/02/21 Omeprazole 20 mg PO BID 04/02/21 Potassium Chloride 20 meq PO DAILY 04/02/21 Spironolactone [Aldactone*] 25 mg PO BID 04/02/21 Budesonide/Formoterol Fumarate [Symbicort 160-4.5 Mcg Inhaler] 2 puff IH BID #1 hfa.[email or web address] 04/04/21 Furosemide [Lasix*] 40 mg PO BID #60 tab 04/04/21 predniSONE [Deltasone*] 10 mg PO DAILY #5 tab 04/04/21 New Medications: predniSONE [Deltasone*] 10 mg PO DAILY #5 tab Furosemide [Lasix*] 40 mg PO BID #60 tab Budesonide/Formoterol Fumarate [Symbicort 160-4.5 Mcg Inhaler] 2 puff IH BID #1 hfa.aer.ad Physician Discharge Instructions: Patient presented with shortness of breath secondary to acute on chronic diastolic CHF with pulmonary hypertension and COPD exacerbation. Patient is on chronic oxygen. Patient visiting in the area from [place]. She plans to go back soon but will go to [place], [place] to visit a son. Patient was given IV diuresis with IV steroids with improvement. Patient appears to be at her baseline level. Patient had not been using her Lasix twice a day which had been prescribed by her pulmonary doctor. Patient had been taking this once daily. At discharge for her CHF, patient will continue with the 1500 cc/day fluid restriction and low-salt diet. Recommend to monitor her weight daily. If her weight increases by more than 5 pounds further adjustment in medication may be required. At discharge she will continue with Lasix 40 mg 1 pill twice daily, Aldactone 25 mg 1 pill twice daily, and potassium supplementation 20 mEq daily. Recommend to recheck BMP in 1 week to monitor her levels. Patient will continue with oxygen to maintain sats above 93%. Patient currently back to her baseline at 3 L per nasal cannula. Consider AMMY inhibitor or ARB inhibitor in the future for her CHF if blood pressures not well controlled. For her COPD, patient will continue with prednisone 10 mg 1 pill daily for the next 5 days. Patient will continue with Symbicort 2 puffs twice daily. Education on CHF and COPD provided. Recommend follow-up with her PCP within 1 to 2 weeks to follow- up this hospitalization. Recommend to recheck chest x-ray in 2 to 4 weeks to monitor resolution. Patient with chronic atrial fibrillation on chronic anticoagulation therapy, hypertension and CAD. This has remained stable. At discharge patient will continue with Eliquis 2.5 mg 1 pill twice daily. Patient also takes metoprolol 25 mg 1 pill twice daily. Recommend to maintain blood pressure less than 130/80. Further adjustment can be done by her PCP. Recommend follow-up with her drug room clerk in 2 to 4 weeks to monitor her progress. Patient with hyperlipidemia. At discharge patient will continue with Lipitor 40 mg daily. Patient with GERD. At discharge she will continue with Prilosec 20 mg 1 pill twice daily. Patient with diabetes mellitus type 2. This appears to be diet controlled. Recommend to recheck hemoglobin A1c every 3 months to monitor her progress. Recommend to monitor blood sugar daily. Recommend to maintain blood sugars less than 140 fasting and less than 200 after meals. If blood sugars remain above 200 she can contact her PCP for further recommendation. Patient also takes multivitamin daily, allopurinol 100 mg daily, and lactulose. Patient with diabetic neuropathy. At discharge she will continue with gabapentin 300 mg 1 pill twice daily. Patient will continue with Tylenol with codeine as directed. Diet: ADA Activity: Fall precautions Followup: AYAKA MARLEY [Primary Care Provider] - Time spent managing pt's care (in minutes): 55
[2021-04-04] MEDS: INSULIN -REGULAR HUMAN 50 UNIT/0.5 ML ML SQ SCH ×2 (07:30→11:30)
[2021-04-04] MEDS: LACTULOSE 20 GM/30 ML UCUP PO SCH (08:10)
[2021-04-04] MEDS: GABAPENTIN 300 MG CAP PO SCH (08:10)
[2021-04-04] MEDS: POTASSIUM CL SA 10 MEQ TAB PO SCH (08:10)
[2021-04-04] MEDS: MULTIVITAMIN TAB PO SCH (08:10)
[2021-04-04] MEDS: APIXABAN 5 MG TABLET PO SCH (08:10)
[2021-04-04] MEDS: SPIRONOLACTONE 25 MG TABLET PO SCH (08:10)
[2021-04-04] MEDS: allopurinoL 100 MG TAB PO SCH (08:10)
[2021-04-04 08:47] VITALS: O2SAT 100
[2021-04-04] MEDS: CODEINE 30MG/APAP 300MG TAB PO PRN (10:11)
--- NOTE | 2021-04-04 11:53 | RAD REPORT ---
EXAM DESCRIPTION: Chelsey Single View04/04/2021 11:34 am CLINICAL HISTORY: Shortness breath COMPARISON: April 02, 2021 FINDINGS: The upper lobe vessels are prominent indicative of pulmonary venous hypertension. The lungs appear clear of acute infiltrate. The heart is markedly enlarged
[2021-04-04 12:50] VITALS: BP 141/58; TEMP 97.5
[2021-04-04] MEDS ORDERED: APIXABAN 2.5 MG TABLET PO SCH (21:00)
== END 2021-04-04 13:18 | disposition home or self-care (01) | DRG 190 ==
LOC: ER 17:59 → ERHOLD 20:46 → 2ND 22:14 → OBSVTOIN 04-04 01:22
PROVIDERS: ADMIT Hospitalist; ATTEND Hospitalist
DX: J44.1 Chronic obstructive pulmonary disease with (acute) exacerbation (principal); I50.33 Acute on chronic diastolic (congestive) heart failure; I48.20 Chronic atrial fibrillation, unspecified; I11.0 Hypertensive heart disease with heart failure; I25.10 Atherosclerotic heart disease of native coronary artery without angina pectoris; E11.40 Type 2 diabetes mellitus with diabetic neuropathy, unspecified; K21.9 Gastro-esophageal reflux disease without esophagitis; E66.9 Obesity, unspecified; Z68.30 Body mass index [BMI] 30.0-30.9, adult; I27.20 Pulmonary hypertension, unspecified; E78.5 Hyperlipidemia, unspecified; Z79.01 Long term (current) use of anticoagulants; Z99.81 Dependence on supplemental oxygen; Z95.5 Presence of coronary angioplasty implant and graft; Z20.822 Contact with and (suspected) exposure to COVID-19
CPT/HCPCS: 36415; 71045; 80048; 80053; 80061; 80076; 81003; 82947; 83735; 83880; 84100; 84484; 85025; 85610; 87804; 93005; 94640; 94760; 94762; 96374; 99285; G0378; J1940; J2930; J7512; U0003